=== PATIENT | male | born 1950 | race Caucasian/White ===

== ENCOUNTER 2021-04-22 09:47 | Outpatient (CLI) | payer MEDICARE, SELFPAY ==
--- NOTE | ~2021-04-22 | US_ITS ---
EXAMINATION: US aorta [facility] DATE: 04/22/2021 10:42 CDT INDICATION: Abdominal aortic aneurysm screening. High cholesterol. TECHNIQUE: Grayscale, color Doppler, and pulsed Doppler images of the aorta and common iliac arteries were obtained. COMPARISON: None. FINDINGS: There is mild atherosclerotic changes. The proximal aorta measures 2.1 cm sagittal dimension. The mid aorta measures 1.6 cm greatest sagittal dimension. The distal aorta measures 1.4 cm greatest sagitta l dimension. The right common internal iliac artery measures 1 cm. The left common iliac artery measu res 8 mm. IMPRESSION: 1. Mild atherosclerosis of the abdominal aorta without aneurysm. Reviewed, dictated and finalized at location B.
== END 2021-04-22 09:48 | disposition home or self-care (01) ==
PROVIDERS: PCP Family Medicine; Visit Provider Physician Assistant
DX: Z13.6 Encounter for screening for cardiovascular disorders (principal); I70.0 Atherosclerosis of aorta
CPT/HCPCS: 76706

== ENCOUNTER 2021-07-10 12:55 | Emergency (ER) | payer MEDICARE, SELFPAY ==
[2021-07-10 13:05] VITALS: BP 129/68; PULSE 81; RESP 18; TEMP 37; O2SAT 99
--- NOTE | 2021-07-10 13:40 | ED.MALEGU ---
HPI - Male Genitourinary General Chief complaint: Urogenital-Male Stated complaint: Male Genitalia Source: patient and RN notes reviewed Limitations: no limitations History of Present Illness HPI Narrative: The patient, is on several routine meds, presents with suprapubic pain. Patient states been followed by PMD, urology in the past for prostatism [MARCH BUN/creatinine = 25/1], and more recently his PMD for eosinophilia,mild thrombocytopenia[ [id number]]. He now complains of a shorter 1 day history of suprapubic discomfort urinary frequency, hesitancy and dribbling. No fever, low back pain, blood, vomiting/diarrhea; and prior abdominal ultrasound showed stable AAA [1.4 cm, 2.0 cm proximally]. He was able to urinate ;and midday, point of care urine test is noncontributory. Discussed causes [infectious, obstructive, other ] and advised to go to hospital or see urologist if not improved Related Data Home Medications Medication Instructions Recorded Confirmed Aspir-81 81 mg PO DAILY 07/10/21 07/10/21 Allergies Allergy/AdvReac Type Severity Reaction Status Date / Time Penicillins Allergy Unknown Skin Verified 07/10/21 13:41 Reaction Review of Systems Review of Systems: General/Constitutional: No weight loss,fever Eyes: N0: Redness,discharge Ears/Nose/Throat: No: Epistaxis,ear discharge Respiratory: Denies: Hemoptysis Gastrointestinal: No Vomiting, Bleeding-rectal Skin: No Lumps, eruption Neurologic: No Focal Weakness,Sz Hematologic: Denies: Petechiae/Purpura Psychiatric: No: Suicida ideationl All Other Systems: Reviewed and Negative [facility], [facility] Surgical History Surgical History Hx of cholecystectomy Family History Family History Father Family history of genitourinary disease Malignant neoplasm of prostate Mother Diabetes mellitus Sibling Family history of malignant neoplasm Social History Social History (Updated 03/25/21 @ 09:46 by Millie Pena CMA) Alcohol intake: never Gender identity (if verbalized by the patient): Male Comments At time of signature, agree with nursing past medical, surgical, social and family history. There is no relevant family history pertinent to the presenting complaint Exam Narrative: General Appearance: Well appearing, No distress EYE: PERRLA, Conjunctiva clear Ears: External ear normal Nose: Normal nose Mouth/Throat: Normal appearing, Normal lips Neck: Supple Respiratory: Airway patent, No respiratory distress Cardiovascular: RRR Abdomen: Soft, Non-tender, No massess, No organomegaly (no rebound/ surgical signs), Hyperactive bowel sounds Musculoskeletal: Full ROM Skin: Warm, Dry Neurological: A&O x3, CN II-X intact Psychiatric: Normal mood, Normal affect Course Vital Signs Vital signs: Vital Signs Temperature 98.6 F 07/10/21 13:05 Pulse Rate 81 07/10/21 13:05 Respiratory Rate 18 07/10/21 13:05 Blood Pressure 129/68 07/10/21 13:05 Pulse Oximetry 99 07/10/21 13:05 Temperature 98.6 F 07/10/21 13:05 Pulse Rate 81 07/10/21 13:05 Respiratory Rate 18 07/10/21 13:05 Blood Pressure 129/68 07/10/21 13:05 Pulse Oximetry 99 07/10/21 13:05 MDM - Male Genitourinary Lab Data Labs: Urine Glucose Negative Reference Range: Negative Urine Bilirubin Negative Reference Range: Negative Urine Ketone Negative Reference Range: Negative Urine Specific [place] 1.020 Reference Range:1.001-1.035 Urine Blood Trace Reference Range: Negative * *
== END 2021-07-10 14:02 | disposition home or self-care (01) ==
PROVIDERS: Emergency Provider Emergency Medicine; PCP Family Medicine
DX: R39.11 Hesitancy of micturition (principal); N40.0 Benign prostatic hyperplasia without lower urinary tract symptoms; E78.00 Pure hypercholesterolemia, unspecified; I10 Essential (primary) hypertension; M19.90 Unspecified osteoarthritis, unspecified site
CPT/HCPCS: 81003; 87086; 99213; G0463

== ENCOUNTER 2021-07-16 14:17 | Emergency (ER) | payer MEDICARE, SELFPAY ==
--- NOTE | 2021-07-16 14:37 | ED.SKABFB ---
HPI - Skin/Abscess/Foreign Bdy General Chief complaint: Skin/Abscess/Foreign Body Stated complaint: Rash Rt side of face History of Present Illness HPI narrative: This is a 70-year-old male that comes in complaining of pain to the top of his head that it radiates down is him a headache as well to his eye he has some small rash-like area states that he was here on the was treated for urinary tract infection does not know if he is having allergic reaction or not to the medication there is no other areas noted per patient not itchy is just has radiating pain and it hurts at times and it comes and goes nothing makes it better or worse Related Data Home Medications Medication Instructions Recorded Confirmed Aspir-81 81 mg PO DAILY 07/10/21 07/16/21 Allergies Allergy/AdvReac Type Severity Reaction Status Date / Time Penicillins Allergy Unknown Skin Verified 07/16/21 14:30 Reaction Review of Systems Review of Systems: CONSTITUTIONAL: Denies fever, chills, or sweats. EYES: Denies visual changes, redness, or discharge. ENT: Denies rhinorrhea, congestion, sore throat, or otalgia. CARDIOVASCULAR:Denies chest pain, palpitations, or edema. RESPIRATORY: Denies cough or dyspnea. GASTROINTESTINAL: Denies abdominal pain, nausea, vomiting, or diarrhea. GENITOURINARY: Denies dysuria or hematuria. SKIN: Reports rash or itching. MUSCULOSKELETAL:Denies back pain, joint pain, or myalgia. NEUROLOGIC: Denies headache, numbness, or weakness. PSYCHIATRIC:Denies anxiety or depression [facility] Surgical History Surgical History Hx of cholecystectomy Family History Family History Father Family history of genitourinary disease Malignant neoplasm of prostate Mother Diabetes mellitus Sibling Family history of malignant neoplasm Social History Social History (Updated 03/25/21 @ 09:46 by Millie Pena CMA) Alcohol intake: never Gender identity (if verbalized by the patient): Male Comments At time as signature, I have reviewed and agree with nursing past medical, social, surgical and family history. Please see nursing chart for further information. There is no relevant family history pertinent to the presenting complaint. Exam Narrative: GENERAL:Well-appearing, well-nourished, and in no acute distress. HEAD:Normocephalic, atraumatic. EYES: PERRLA and EOMI. ENT: Nares clear, no rhinorrhea or epistaxis. Mucous membranes moist. NECK: Supple. CHEST: Clear to auscultation. No respiratory distress. HEART: Regular rate and rhythm. . Normal peripheral pulses. ABDOMEN: Soft, nontender, nondistended, normal active bowel sounds. EXTREMITIES: Normal range of motion. No edema. SKIN: Warm, dry, no rash. Right side of head 5-6 erythema around fluid-filled vesicles patient complains of pain that shoots down to the right side of his face as well to his no other areas on the body NEURO: No focal deficits. Alert and oriented x3. 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 They may also decrease your risk of developing nerve pain. You will need to start taking them within 3 days of the start of symptoms to prevent nerve pain. Prescription pain medicine
== END 2021-07-16 14:59 | disposition home or self-care (01) ==
PROVIDERS: Emergency Provider Nurse Practitioner Family; PCP Family Medicine
DX: B02.29 Other postherpetic nervous system involvement (principal); Z79.01 Long term (current) use of anticoagulants
CPT/HCPCS: 99213; G0463

== ENCOUNTER 2021-10-06 10:04 | Emergency (ER) | payer MEDICARE, SELFPAY ==
[2021-10-06 10:09] VITALS: BP 128/66; PULSE 93; RESP 20; TEMP 36.5; O2SAT 97
--- NOTE | 2021-10-06 10:14 | ED.URI ---
HPI - URI/Sore Throat General Chief Complaint: Upper Respiratory Infection Stated Complaint: Sinus,Cough Source: patient and RN notes reviewed Mode of arrival: ambulatory History of Present Illness HPI Narrative: This is a 70-year-old male who presented to urgent care with complaints of head and chest congestion that he has been experiencing for approximately 1 week according to patient on Monday he received his booster vaccine and did note that he was sick previously to getting his booster. He did talk to medical personnel who informed him that it would be okay for him to get his booster even with his symptoms. Patient does have a history of allergies he does not report any fever and notes that he has uncontrollable nonproductive coughing at night which keeps him up at night. At home he did use [id number] medication with decongestion with no relief he also complains of shortness of breath with wheezing. The patient denies, CP, palpitation, extremity numbness, lightheadedness, sinus tenderness ,dizziness, constipation, diarrhea, chills, or fever. MD elicited complaint: cough and nasal congestion Related Data Home Medications Medication Instructions Recorded Confirmed Aspir-81 81 mg PO DAILY 07/10/21 10/06/21 chlordiazepoxide HCl 5 mg PO DAILY 10/06/21 10/06/21 ciprofloxacin HCl 250 mg PO BID 10/06/21 10/06/21 valacyclovir 1,000 mg PO DAILY 10/06/21 10/06/21 Allergies Allergy/AdvReac Type Severity Reaction Status Date / Time Penicillins Allergy Unknown Skin Verified 10/06/21 10:25 Reaction Review of Systems Review of Systems: A 14 organ system Review of Systems was performed and pertinent positives included in the HPI, otherwise remaining ROS is negative. [facility] Surgical History Surgical History Hx of cholecystectomy Family History Family History Father Family history of genitourinary disease Malignant neoplasm of prostate Mother Diabetes mellitus Sibling Family history of malignant neoplasm Social History Social History Alcohol intake: never Gender identity (if verbalized by the patient): Male Exam Narrative: GENERAL: This is a well-nourished, well-developed patient, in no apparent distress. HEAD: normocephalic, atraumatic. EYES: PERRL. Sclera clear/white. Vision is grossly intact. EARS: External ears normal, auditory canals clear and without drainage, TMs normal without perforation. Hearing grossly intact. NOSE: External nose normal with no obvious nasal discharge, nares without redness, no rhinorrhea. THROAT: Mucous membranes moist, posterior pharynx clear. NECK: Neck supple, non-tender without lymphadenopathy, masses or thyromegaly. CARDIOVASCULAR: Regular rate and rhythm without murmurs, gallops, or rubs. RESPIRATORY: Clear to auscultation. Breath sounds equal bilaterally. No wheezes, rales, or rhonchi. GASTROINTESTINAL: Abdomen soft, non-tender, nondistended. Bowel sounds are active. No hepato-splenomegaly, or palpable masses. No guarding. SKIN: warm, intact with no suspicious lesions or rash, good texture and turgor. NEURO: awake, alert, and oriented to person, place and time. There were no obvious focal neurologic abnormalities. Steady gait EXTREMITIES: Normal range of motion. No edema. No calf tenderness. Negative Homans sign bilaterally. BACK: Nontender without deformity or crepitance. No flank tenderness. Course Course Emergency Course: Patient will be treated for upper respiratory inspection he will go home with decongestant with codeine, Flonase, albuterol, Claritin and Tessalon Perles. Vital Signs Vital signs: Vital Signs Temperature 97.7 F 10/06/21 10:09 Pulse Rate 93 10/06/21 10:09 Respiratory Rate 20 10/06/21 10:09 Blood Pressure 128/66 10/06/21 10:09 Pulse Oximetry 97 10/06/21 10:09
== END 2021-10-06 10:48 | disposition home or self-care (01) ==
PROVIDERS: Emergency Provider Nurse Practitioner; PCP Family Medicine
DX: J06.9 Acute upper respiratory infection, unspecified (principal)
CPT/HCPCS: 99213; G0463

== ENCOUNTER 2021-11-15 02:25 | Emergency (ER) | payer MEDICARE, SELFPAY ==
--- NOTE | ~2021-11-15 | CT_ITS ---
EXAMINATION: CT abdomen pelvis wo con DATE: 11/15/2021 08:20 INDICATION: Left flank pain radiating to the groin TECHNIQUE: Computed tomography (CT) of the abdomen and pelvis was performed without intravenous contr ast. Automated exposure control and iterative reconstruction technique were employed. The dose-length product was 214.57 mGy-cm. COMPARISON: 06/13/2016 FINDINGS: Minimal dependent atelectasis in the right lower lobe. Heart size is normal. Atherosclerotic coronary artery calcification. No pericardial or pleural effusion. Cholecystectomy clips at the gallbladder f carol. Liver, spleen, pancreas and bilateral adrenal glands are normal. Bilateral low-attenuation petr l cysts the larger on the right measuring 1.8 cm. Bilateral nephrolithiasis with 8 stones measuring u p to 5 mm on the right and 7 stones measuring up to 5-6 mm on the left. At least partially obstructin g 5 x 3 mm stone in the mid right ureter with more proximal mild left hydroureteronephrosis and asymm etric left perinephric stranding. Bowels are unremarkable. The appendix is again not visualized with no pericecal inflammatory stranding to suggest acute appendicitis. Bladder is normal. No free intrape ritoneal gas or fluid. No pathologically enlarged abdominal or pelvic lymphadenopathy. Mild thoracolu mbar S-shaped curvature with severe lumbar spondylosis. IMPRESSION: 1. Bilateral nephrolithiasis with obstructing 5 x 3 mm mid right ureteral stone with mild left hydrou reteronephrosis. Reviewed, dictated and finalized at location B. ER OPERATOR IMPRESSION: 1. Bilateral nephrolithiasis with obstructing 5 x 3 mm mid right ureteral stone with mild left hydroureteronephrosis.
[2021-11-15 02:28] VITALS: BP 186/95; PULSE 71; RESP 17; TEMP 35.8; O2SAT 100
[2021-11-15 04:59] VITALS: BP 144/83; PULSE 74; RESP 18; TEMP 36.7; O2SAT 98
[2021-11-15 07:05] VITALS: BP 147/76; PULSE 79; RESP 18; TEMP 36.6; O2SAT 99
--- NOTE | 2021-11-15 07:45 | ED.MALEGU ---
HPI - Male Genitourinary General Chief complaint: Urogenital-Male Stated complaint: Left flank pain Time Seen by Provider: 11/15/21 07:45 Source: patient Mode of arrival: ambulatory Limitations: no limitations History of Present Illness HPI Narrative: The patient is a 71 yo male with a history of BPH, migraine headaches, HTN, presenting for evaluation of left flank pain. This pain awakened him from sleeping. Pain is sharp, aching in nature. Pt with history of kidney stones on right side approximately 10 years ago. Pt was able to pass the stone on his own. Patient rates pain as 5-6/10. No radiation to the frontal abdomen. Pt denies dysuria or hematuria. No hesitancy or frequency. Patient denies fever, chills, nausea or vomiting. No chest pain. No upper abdominal pain. Patient had prostatitis approximately 1 month ago. Denies taking ciprofloxacin currently. Related Data Home Medications Medication Instructions Recorded Confirmed Aspir-81 81 mg PO DAILY 07/10/21 10/06/21 chlordiazepoxide HCl 5 mg PO DAILY 10/06/21 10/06/21 ciprofloxacin HCl 250 mg PO BID 10/06/21 10/06/21 valacyclovir 1,000 mg PO DAILY 10/06/21 10/06/21 Allergies Allergy/AdvReac Type Severity Reaction Status Date / Time Penicillins Allergy Unknown Skin Verified 10/06/21 10:25 Reaction Review of Systems Review of Systems: CONSTITUTIONAL: Denies fever, chills, or sweats. CARDIOVASCULAR: Denies chest pain, palpitations, or edema. RESPIRATORY: Denies cough or dyspnea. GASTROINTESTINAL: Denies abdominal pain, nausea, vomiting, or diarrhea. GENITOURINARY: Denies dysuria or hematuria. Reports left flank pain. SKIN: Denies rash or itching. MUSCULOSKELETAL: Denies back pain, joint pain, or myalgia. NEUROLOGIC: Denies headache, numbness, or weakness. [facility] Past Medical History Medical History (Updated 11/15/21 @ 10:46 by Gilda Cagle MD) Actinic keratosis Benign prostatic hyperplasia Cerumen impaction Constipation Cough Dyslipidemia (Unknown) Elevated liver enzymes Elevated platelet count Elevated PSA Essential (primary) hypertension Impacted cerumen of right ear Impaired fasting glucose Impaired fasting glucose Low vitamin D level Migraine NOS/intractable Mixed hyperlipidemia Need for hepatitis C screening test Prostatitis Screening for abdominal aortic aneurysm Serum calcium elevated Surgical History Surgical History Hx of cholecystectomy Family History Family History Father Family history of genitourinary disease Malignant neoplasm of prostate Mother Diabetes mellitus Sibling Family history of malignant neoplasm Social History Social History Alcohol intake: never Gender identity (if verbalized by the patient): Male Exam Narrative: GENERAL: Awake, alert, conversant HEAD: Normocephalic, atraumatic. EYES: PERRLA and EOMI. ENT: Nares clear, no rhinorrhea or epistaxis. Mucous membranes moist. NECK: Supple. CHEST: No respiratory distress, breathing even and non labored HEART: Regular rate, sinus rhythm ABDOMEN:Non distended, non tender EXTREMITIES: Normal range of motion. No edema. SKIN: Warm, dry, no rash. NEURO:No focal deficits. Alert and oriented x3. Pt is ambulatory. Course Vital Signs Vital signs: Vital Signs Temperature 35.8 C L 11/15/21 02:28 Pulse Rate 71 11/15/21 02:28 Respiratory Rate 17 11/15/21 02:28 Blood Pressure 186/95 H 11/15/21 02:28 Pulse Oximetry 100 11/15/21 02:28 Temperature 36.6 C 11/15/21 07:05 Pulse Rate 79 11/15/21 07:05 Respiratory Rate 18 11/15/21 07:05 Blood Pressure 147/76 H 11/15/21 07:05 Pulse Oximetry 99 11/15/21 07:05 MDM - Male Genitourinary MDM Narrative Medical decision making narrative: Patient presented for evaluation of left flank pain. At the time of assessm
--- NOTE | 2021-11-15 07:57 | PC.NURSE ---
Pt seen in triage bay by ERP.
[2021-11-15] MEDS: oxyCODONE/ACETAMINOPHEN (*CRX) 5-325 MG TABLET 1 TABLET PO (08:28)
[2021-11-15 09:00] LABS: Basophils Absolute Auto 0.1 K/mm3 (0.0-0.1); Basophils Percent Auto 0.7 % (0.2-1.2); Eosinophils Absolute Auto 0.3 K/mm3 (0-0.3); Eosinophils Percent Auto 2.8 % (0-4.4); Hematocrit 43.6 % (42.0-52.0); Hemoglobin 15.1 g/dL (14.0-18.0); Immature Granulocyte Absolute 0.04 K/mm3 (0.00-0.031); Immature Granulocyte Percent A 0.3 % (0-0.5); Lymphocytes Absolute Auto 2.13 K/mm3 (0.9-3.2); Lymphocytes Percent Auto 17.6 % (18.3-44.2); Mean Corpuscular HGB Conc 34.6 g/dl (32-36); Mean Corpuscular Hemoglobin 32.8 pg (26-34); Mean Corpuscular Volume 94.6 fl (80-100); Mean Platelet Volume 9.8 fl (7.4-10.4); Monocytes Percent Auto 8.5 % (2.6-8.5); Neutrophils Absolute Auto 8.5 K/mm3 (1.3-6.7); Neutrophils Percent Auto 70.1 % (45.5-73.1); Platelet Count Result 358 k/mm3 (150-375); Red Blood Count 4.61 M/mm3 (4.6-6.20); Red Cell Distribution Width 13.2 % (11.5-14.5); White Blood Count 12.1 K/mm3 (4.5-10.0)
[2021-11-15 09:15] LABS: Add Urine Microscopic? YES; Appearance Urine Clear (Clear); Bilirubin Urine Negative (Negative); Blood Urine 2+ (Negative); Color Urine Yellow (Yellow); Glucose Urine UA Negative (Negative); Ketones Urine Negative (Negative); Leukocyte Esterase Ur Negative LEU/UL (Negative); Mucus Urine Rare /lpf; Nitrate Urine Negative (Negative); Protein Urine Negative (Negative); RBC Urine 51-75 /hpf (0-2); Specific Grav Ur 1.013 (1.001-1.035); Squamous Epithelial Cell Urine Rare /hpf (Few); Urobilinogen Urine Negative mg/dL (<2.0)
[2021-11-15 10:34] LABS: Anion Gap 7 mmol/L (8-16); Blood Urea Nitrogen 22 mg/dL (9-20); Calcium 10.2 mg/dL (8.4-10.2); Carbon Dioxide 30 mmol/L (22-30); Chloride 103 mmol/L (98-107); Estimated Glomerular Filt Rate 60; Glucose 106 mg/dL (65-110); Potassium 4.4 mmol/L (3.4-5.0); Sodium 140 mmol/L (137-145)
== END 2021-11-15 11:04 | disposition home or self-care (01) ==
PROVIDERS: Emergency Provider Emergency Medicine; PCP Family Medicine
DX: N13.2 Hydronephrosis with renal and ureteral calculous obstruction (principal); I10 Essential (primary) hypertension; N40.0 Benign prostatic hyperplasia without lower urinary tract symptoms; E78.2 Mixed hyperlipidemia
CPT/HCPCS: 36415; 74176; 80048; 81001; 85025; 99284; A9270

== ENCOUNTER → 2021-12-02 08:11 | Outpatient (CLI) | payer MEDICARE, SELFPAY ==
--- NOTE | ~2021-12-02 | CT_ITS ---
EXAMINATION: CT abdomen pelvis wo con EXAM DATE: 12/02/2021 08:36 INDICATION: Left ureteral stone. TECHNIQUE: Spiral CT of the abdomen and pelvis was performed without contrast. Axial, coronal and sag ittal images were reviewed. The dose-length product (DLP) for this examination was 521.48 mGy-cm. T he exposure was tailored according to patient size (auto mA exposure control), and iterative reconstr uction (ASIR) was used as additional dose reduction technique. Comparison is made to prior examinatio n from 11/15/2021. FINDINGS: Previously seen left mid ureteral stone has passed, no ureter or bladder stones, no obstruc tive nephropathy. Multiple bilateral kidney stones up to 10 mm on the right and 6 mm on the left. The re is 1.5 cm right renal cyst. The prostate is unremarkable. The bladder is unremarkable. The liver , spleen, adrenal glands and pancreas are unremarkable. Gallbladder not identified, patient likely h as had cholecystectomy. There is no retroperitoneal or pelvic lymphadenopathy. There is mild scatt ered arteriosclerotic disease. There are no findings to suggest appendicitis. The stomach and small bowel are unremarkable. There is expected amount of colonic stool. No free intraperitoneal gas. The heart is normal in size. T here are no pericardial or pleural effusions. 3 mm lingular noncalcified granuloma. Moderate to sev ere disc disease L4-5 and L5-S1. There are no osteoblastic or osteolytic lesions identified. IMPRESSION: Bilateral nonobstructing calyceal stones. Previously seen left ureteral stone has passed. Reviewed, dictated and finalized at location B. GER TRANSPORT IMPRESSION: Bilateral nonobstructing calyceal stones. Previously seen left uret eral stone has passed.
--- NOTE | ~2021-12-02 | XR_ITS ---
EXAMINATION: XR abdomen/kub 1V EXAM DATE: 12/02/2021 08:36 INDICATION: Left ureteral stone . TECHNIQUE: Frontal projection of the upper abdomen, frontal projection lower abdomen/pelvis for inter pretation. There is no prior study for comparison. FINDINGS: Bilateral nephrolithiasis identified. Mild lumbar scoliosis. Moderate to severe lower lumb ar disc disease. Cholecystectomy clips. Nonobstructive bowel gas pattern. IMPRESSION: Bilateral nephrolithiasis. Reviewed, dictated and finalized at location B. ER MEASURER IMPRESSION: Bilateral nephrolithiasis.
== END ==
PROVIDERS: PCP Family Medicine; Visit Provider Urology
DX: N20.2 Calculus of kidney with calculus of ureter (principal)
CPT/HCPCS: 74018; 74176

== ENCOUNTER 2022-07-16 11:34 | Emergency (ER) | payer MEDICARE, SELFPAY ==
--- NOTE | ~2022-07-16 | XR_ITS ---
EXAMINATION: XR foot LT min 3V DATE: 07/16/2022 12:05 INDICATION: Swelling and tenderness at the dorsum of the left foot TECHNIQUE: Dorsoplantar, two oblique and lateral views of the left foot were obtained. COMPARISON: None. FINDINGS: Alignment is normal. No fracture. Mild osteoarthritis at the calcaneocuboid, first metatarsophalangea l and a few tarsometatarsal and interphalangeal joints. Moderate-sized plantar calcaneal spur. Small heterotopic ossicle near the tip the lateral malleolus likely sequela of chronic lateral ankle sprain . Soft tissues are unremarkable. No left ankle joint effusion. IMPRESSION: 1. 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 No acute osseous abnormality. Reviewed, dictated and finalized at location A. IMPRESSION: 1. 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 No acute osseous abnorma lity.
[2022-07-16 12:00] VITALS: BP 134/72; PULSE 86; RESP 18; TEMP 36.7; O2SAT 95
--- NOTE | 2022-07-16 12:48 | ED.GENADULT ---
HPI - General Adult General Chief complaint: Extremity Injury, Lower Stated complaint: swollen lt foot History of Present Illness HPI narrative: Patient is a 71-year-old male who presents to the [facility] care via POV for evaluation of foot pain and swelling that he noticed this am. He reports pain is located on top of right foot. Pain is achy in nature and worses with weight bearing. Is taking meloxicam for arthritis although has not noticed if this helps with his symptoms. Related Data Home Medications Medication Instructions Recorded Confirmed amitriptyline 10 mg tablet 10 mg DAILY 07/16/22 07/16/22 aspirin 81 mg chewable tablet 81 mg PO DAILY 07/16/22 07/16/22 atorvastatin 10 mg tablet 10 mg DAILY 07/16/22 07/16/22 chlordiazepoxide HCl 5 mg capsule 5 mg DAILY 07/16/22 07/16/22 fenofibrate 160 mg tablet 160 mg DAILY 07/16/22 07/16/22 finasteride 5 mg tablet 5 mg DAILY 07/16/22 07/16/22 lisinopril 10 mg tablet 10 mg DAILY 07/16/22 07/16/22 meloxicam 15 mg tablet 15 mg DAILY 07/16/22 07/16/22 nifedipine 30 mg tablet,extended 30 mg PO DAILY 07/16/22 07/16/22 release tamsulosin 0.4 mg capsule 0.4 mg PO DAILY 07/16/22 07/16/22 Allergies Allergy/AdvReac Type Severity Reaction Status Date / Time Penicillins Allergy Unknown Skin Verified 07/16/22 12:20 Reaction Review of Systems Review of Systems: Pertinent negatives: fever, chills, sweats, change in appetite, poor p.o. intake, malaise, calf tenderness, skin color changes, rash, warmth, numbness, tingling, loss of sensation, deformity, decreased range of motion, weakness, difficulty with ambulation/coordination, nausea, vomiting, lymphadenopathy, shortness of breath, chest pain, heart palpitations, and heart murmur. [facility] Past Medical History Medical History Actinic keratosis Benign prostatic hyperplasia Cerumen impaction Constipation Cough Dyslipidemia (Unknown) Elevated liver enzymes Elevated platelet count Elevated PSA Essential (primary) hypertension Impacted cerumen of right ear Impaired fasting glucose Impaired fasting glucose Low vitamin D level Migraine NOS/intractable Mixed hyperlipidemia Need for hepatitis C screening test Prostatitis Screening for abdominal aortic aneurysm Serum calcium elevated Surgical History Surgical History Hx of cholecystectomy Family History Family History Father Family history of genitourinary disease Malignant neoplasm of prostate Mother Diabetes mellitus Sibling Family history of malignant neoplasm Social History Social History (Updated 04/14/22 @ 15:40 by ALYX Arreola) Smoking status: Former smoker Alcohol intake: never Gender identity (if verbalized by the patient): Male Exam Narrative: GENERAL: Well-appearing, well-nourished, and in no acute distress. HEAD: Normocephalic, atraumatic. NECK: Supple. No Lymphadenopathy or nuchal rigidity appreciated. CHEST: Bilateral lung aldana are clear to auscultation. No respiratory distress. No evidence of cough or pleuritic cp upon examination. HEART: Regular rate and rhythm. No murmur, gallop, or rub heard. EXTREMITIES: Subtle generalized swelling noted to dorsal aspect of left foot. Mild pain palpated over dorsal aspect of left foot. No evidence of injury, decreased ROM, cyanosis, hematoma, laceration, abrasion, deformity, rash, or puncture. No evidence of pain with active/passive ROM. No evidence of dislocation, ligament laxity, effusion, or pain at rest. Pulses palpable at 2+, strength 5/5, and cap refill < 3 seconds in affected extremity. DTRs normal. Gait normal. Negative oleksandr's test. SKIN: Warm, dry, no rash. NEURO: No focal deficits. Alert and oriented x3. SPECIAL OBSERVATIONS: Smiling. Laughing. No evidence of discomfort. Course Course Level of Care: Express Care
== END 2022-07-16 13:10 | disposition home or self-care (01) ==
PROVIDERS: Emergency Provider Nurse Practitioner Family; PCP Physician Assistant
DX: M19.072 Primary osteoarthritis, left ankle and foot (principal); Z87.891 Personal history of nicotine dependence; N40.0 Benign prostatic hyperplasia without lower urinary tract symptoms; I10 Essential (primary) hypertension; R73.01 Impaired fasting glucose; E78.2 Mixed hyperlipidemia
CPT/HCPCS: 73630; 99213; G0463

== ENCOUNTER → 2022-08-25 11:48 | Outpatient (CLI) | payer MEDICARE, SELFPAY ==
--- NOTE | ~2022-08-25 | XR_ITS ---
EXAMINATION: XR lumbar spine 2-3V DATE: 08/25/2022 12:03 INDICATION: Low back pain TECHNIQUE: Anteroposterior and lateral views of the lumbar spine, and cone-down lateral view of the l umbosacral junction were obtained. COMPARISON: 12/05/2016 FINDINGS: There are 3 mm of stable retrolisthesis of L5 on S1. There is no fracture. The vertebral anastasia dy heights are normal. There is severe loss of intervertebral disc space height at L2-3 with interval worsening. There is stable severe loss of intervertebral disc space height at L4-5 and L5-S1. There is moderate loss of intervertebral disc space height at L3-4. There is severe facet joint osteoarthri tis of the lower lumbar spine. Small degenerative osteophytes project from the anterior endplates of multiple vertebral bodies. Surgical clips in the right upper quadrant are likely from prior cholecyst ectomy. IMPRESSION: 1. Moderate to severe lumbar spondylosis with interval worsening. No acute findings. Reviewed, dictated and finalized at location F. IMPRESSION: 1. Moderate to severe lumbar spondylosis with interval worsening. No acute find ings.
== END ==
PROVIDERS: PCP Family Medicine; Visit Provider Physician Assistant
DX: M47.896 Other spondylosis, lumbar region (principal)
CPT/HCPCS: 72100

== ENCOUNTER → 2022-09-29 14:36 | Outpatient (CLI) | payer MEDICARE, SELFPAY ==
--- NOTE | ~2022-09-29 | MR_ITS ---
EXAMINATION: MR lumbar spine wo con DATE: 09/29/2022 15:15 INDICATION: Lumbar radiculopathy. Low back pain. TECHNIQUE: Magnetic resonance imaging (MRI) of the lumbar spine was performed without intravenous con trast. Sequences included sagittal T2-weighted FSE, sagittal T2-weighted FS FSE, sagittal T1-weighted FSE, and axial T2-weighted FSE. COMPARISON: Lumbar spine radiographs 08/25/2022 FINDINGS: There is 12 degrees dextroscoliosis of lumbar spine. Vertebral body heights are normal. The re is moderately decreased disc height at L1-L2, severely decreased disc height at L2-L3, moderately decreased disc height at L3-L4, and severely decreased disc height at L4-L5 and L5-S1 with endplate r emodeling. There is ligamentum flavum hypertrophy at the disc levels in lumbar spine. The distal spin al cord signal intensity is normal. The conus medullaris is at L1. The following disc levels are spec ifically discussed: L1-L2: The disc is bulging. There is severe bilateral facet joint osteoarthritis. There is mild right and moderate left neural foraminal stenosis. There is moderate central canal stenosis. L2-L3: The disc is bulging and has an annular fissure. There is severe right and moderate left facet joint osteoarthritis. There is moderate bilateral neural foraminal stenosis. There is moderate centra l canal stenosis. L3-L4: The disc is bulging and has an annular fissure. There is severe bilateral facet joint osteoart hritis. There is moderate bilateral neural foraminal stenosis. There is moderate central canal stenos is. L4-L5: The disc is bulging and has an annular fissure. There is severe right and moderate left facet joint osteoarthritis. There is moderate bilateral neural foraminal stenosis. There is mild central ca nal stenosis. L5-S1: The disc is bulging and has an annular fissure. There is moderate bilateral facet joint osteoa rthritis. There is moderate bilateral neural foraminal stenosis. There is mild central canal stenosis . IMPRESSION: 1. Severe lumbar spondylosis. 2. Lumbar dextroscoliosis. Reviewed, dictated and finalized at location A. 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
== END ==
PROVIDERS: PCP Family Medicine; Visit Provider Physician Assistant
DX: M47.26 Other spondylosis with radiculopathy, lumbar region (principal)
CPT/HCPCS: 72148

== ENCOUNTER 2022-11-01 10:06 | Emergency (ER) | payer MEDICARE, SELFPAY ==
--- NOTE | ~2022-11-01 | XR_ITS ---
Clinical Indication: Cough PA and lateral views of the chest: Comparison: 12/31/2013 Findings: The lungs are clear, without evidence of focal consolidation or pleural effusion. Cardiome diastinal silhouette is within normal limits. Bones and soft tissues are unremarkable. Impression: Normal chest. Reviewed, dictated and finalized at [facility]. 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
[2022-11-01 10:26] VITALS: BP 100/60; PULSE 97; RESP 18; TEMP 36.3; O2SAT 98
--- NOTE | 2022-11-01 10:29 | ED.URI ---
HPI - URI/Sore Throat General Chief Complaint: Upper Respiratory Infection Stated Complaint: congestion,cough,wheezing Time Seen by Provider: 11/01/22 10:29 Source: patient and RN notes reviewed Mode of arrival: ambulatory Limitations: no limitations History of Present Illness HPI Narrative: 72-year-old male presented for complaint of cough, wheezing, and short of breath with exertion over the last 3 days. He endorses wheezing is worse at night. He denies hemoptysis, the fever, chills, vomiting or diarrhea. He endorses his also has a cough. MD elicited complaint: cough Related Data Home Medications Medication Instructions Recorded Confirmed aspirin 81 mg chewable tablet 81 mg PO DAILY 07/16/22 11/01/22 chlordiazepoxide HCl 5 mg capsule 5 mg DAILY 07/16/22 11/01/22 lisinopril 10 mg tablet 10 mg DAILY 07/16/22 11/01/22 tamsulosin 0.4 mg capsule 0.4 mg PO DAILY 07/16/22 11/01/22 meloxicam 15 mg tablet 15 mg PO DAILY 10/28/22 11/01/22 Allergies Allergy/AdvReac Type Severity Reaction Status Date / Time Penicillins AdvReac Mild Skin Verified 11/01/22 10:20 Reaction Review of Systems Review of Systems: CONSTITUTIONAL: Denies malaise, chills, sweats, fever EYES: Denies visual changes, redness, or discharge ENT: Reports rhinorrhea, congestion, denies otalgia, sore throat CARDIOVASCULAR: Denies chest pain, palpitations, edema RESPIRATORY: Reports cough, wheezing, dyspnea GASTROINTESTINAL: Denies abdominal pain, nausea, vomiting, diarrhea SKIN: Denies rash or itching MUSCULOSKELETAL: denies myalgia PMFSH Past Medical History Medical History Actinic keratosis Benign prostatic hyperplasia Cerumen impaction Constipation Cough Dyslipidemia (Unknown) Elevated liver enzymes Elevated platelet count Elevated PSA Essential (primary) hypertension Impacted cerumen of right ear Impaired fasting glucose Impaired fasting glucose Low vitamin D level Migraine NOS/intractable Mixed hyperlipidemia Need for hepatitis C screening test Prostatitis Screening for abdominal aortic aneurysm Serum calcium elevated Surgical History Surgical History Hx of cholecystectomy Family History Family History Father Family history of genitourinary disease Malignant neoplasm of prostate Mother Diabetes mellitus Sibling Family history of malignant neoplasm Social History Social History Social History: Caffeine-coffee daily Smoking status: Former smoker Alcohol intake: current Alcohol use details: rarely Lack of Transportation: No Lack of Food: Never True Current Housing: I Have Housing Concerned About Future Housing: No Difficulty Paying Gas/Electric Bills: No Difficulty Paying for Meds: No Currently Unemployed: No Education: High School Diploma/GED Difficulty w/ Childcare or Family Care: No Gender identity (if verbalized by the patient): Male Exam Narrative: GENERAL: Ill-appearing, nontoxic EYES: PERRLA, conjunctivae clear ENT: Mucous membranes moist. hearing aides bilaterally; no tragal tenderness. Oropharynx without lesions or exudate, no drooling, no hoarseness, no trismus, uvula midline. CHEST: Clear to auscultation, diminished RLL; No wheezing, rhonchi, rales, or stridor. No respiratory distress, speaks in full sentences. HEART: Regular rate and rhythm. No murmur heard. SKIN: Warm, dry, no rash. NEURO: Alert and oriented x3. PSYCH: Normal mood and affect Course Course Emergency Course: Patient is aware of diagnosis, understands and agrees to treatment plan. Anticipatory guidance given. Patient agrees to follow-up as directed and is aware of reasons to seek care at the emergency department. Portions of this record may have been created with voice r
== END 2022-11-01 11:00 | disposition home or self-care (01) ==
PROVIDERS: Emergency Provider Nurse Practitioner Family; PCP Physician Assistant
DX: B34.9 Viral infection, unspecified (principal); E78.2 Mixed hyperlipidemia; I10 Essential (primary) hypertension; Z87.891 Personal history of nicotine dependence; Z79.82 Long term (current) use of aspirin; Z79.1 Long term (current) use of non-steroidal anti-inflammatories (NSAID)
CPT/HCPCS: 71046; 99213; G0463

== ENCOUNTER 2022-11-03 08:55 | Outpatient (CLI) | payer MEDICARE, SELFPAY ==
--- NOTE | ~2022-11-03 | US_ITS ---
EXAMINATION: US venous doppler [facility] DATE: 11/03/2022 09:30 INDICATION: Left lower limb pain and swelling. TECHNIQUE: Grayscale ultrasound images without and with compression and Doppler ultrasound images of the left lower extremity veins were obtained. COMPARISON: Ultrasound 12/02/2016 FINDINGS: The visualized portions of left common femoral vein, profunda (deep) femoral vein, femoral vein, popl iteal vein, peroneal veins, posterior tibial veins, and greater saphenous vein outflow are patent. IMPRESSION: 1. No deep venous thrombosis. Reviewed, dictated and finalized at location A. 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
== END 2022-11-03 08:56 | disposition home or self-care (01) ==
PROVIDERS: PCP Physician Assistant; Visit Provider Physician Assistant
DX: E78.2 Mixed hyperlipidemia (principal); M25.50 Pain in unspecified joint; G43.919 Migraine, unspecified, intractable, without status migrainosus; R73.01 Impaired fasting glucose; R74.8 Abnormal levels of other serum enzymes; R79.89 Other specified abnormal findings of blood chemistry; R97.20 Elevated prostate specific antigen [PSA]; Z12.5 Encounter for screening for malignant neoplasm of prostate
CPT/HCPCS: 93971

== ENCOUNTER → 2022-11-03 09:33 | Outpatient (CLI) | payer MEDICARE, SELFPAY ==
--- NOTE | ~2022-11-03 | XR_ITS ---
Left Knee Technique: AP, lateral, and sunrise views were obtained. Clinical History: Pain Findings: No fracture or dislocation is seen. Osseous alignment is anatomic. Minimal degenerative spu rring noted is patella and intercondylar notch. Soft tissues are unremarkable. No joint effusion is s een. Impression: Minimal degenerative change, as above. Reviewed, dictated and finalized at location M. [employer] Impression: Minimal degenerative change, as above.
== END ==
PROVIDERS: PCP Physician Assistant; Visit Provider Physician Assistant
DX: M25.50 Pain in unspecified joint (principal); E78.2 Mixed hyperlipidemia; G43.919 Migraine, unspecified, intractable, without status migrainosus; R73.01 Impaired fasting glucose; R74.8 Abnormal levels of other serum enzymes; R79.89 Other specified abnormal findings of blood chemistry; R97.20 Elevated prostate specific antigen [PSA]; Z12.5 Encounter for screening for malignant neoplasm of prostate
CPT/HCPCS: 73562

== ENCOUNTER → 2023-03-15 13:08 | Outpatient (CLI) | payer MEDICARE, SELFPAY ==
--- NOTE | ~2023-03-15 | MR_ITS ---
EXAMINATION: MR cervical spine wo con DATE: 03/15/2023 13:59 INDICATION: Neck pain. Left shoulder pain. TECHNIQUE: Magnetic resonance imaging (MRI) of the cervical spine was performed without intravenous c ontrast. Sequences included sagittal T2-weighted FSE, sagittal T2-weighted FS FSE, sagittal T1-weight ed FSE, axial MERGE, and axial T2-weighted FSE. COMPARISON: Cervical spine MRI 04/10/2010 FINDINGS: There is 8 degrees dextrocurvature of cervical spine. There is 2 mm anterolisthesis of C3 o n C4 and C4 on C5. There is focal kyphosis at C6-C7 with interbody fusion. There is mildly decreased disc height at C3-C4 and C4-C5 and severely decreased disc height at C5-C6. The spinal cord signal in tensity is normal. The following disc levels are specifically discussed: C2-C3: There is a central extrusion. There is mild right and moderate left uncovertebral joint osteoa rthritis. There is severe bilateral facet joint osteoarthritis. There is mild right and moderate left neural foraminal stenosis. There is no central canal stenosis. C3-C4: The disc does not extend beyond the endplate margins. There is mild right and moderate left un covertebral joint osteoarthritis. There is ankylosis of the facet joints with moderate bilateral hype rtrophy. There is mild bilateral neural foraminal stenosis. There is no central canal stenosis. C4-C5: The disc is bulging. There is mild right and moderate left uncovertebral joint osteoarthritis. There is moderate right and severe left facet joint osteoarthritis. There is mild right and moderate left neural foraminal stenosis. There is moderate central canal stenosis with ventral and dorsal ind entation of spinal cord. C5-C6: The disc is bulging. There is severe bilateral uncovertebral joint osteoarthritis. There is mi ld bilateral facet joint osteoarthritis. There is moderate bilateral neural foraminal stenosis. There is moderate central canal stenosis with ventral and dorsal indentation of spinal cord. C6-C7: There is mild left uncovertebral joint hypertrophy. There is mild bilateral facet joint hypert rophy. There is mild left neural foraminal stenosis. There is mild central canal stenosis. C7-T1: There is a central protrusion. There is no uncovertebral joint osteoarthritis. There is severe right and mild left facet joint osteoarthritis. There is mild bilateral neural foraminal stenosis. T here is mild central canal stenosis. IMPRESSION: 1. Severe cervical spondylosis. 2. Posterior fusion at C3-C4 and anterior fusion at C5-C6. Reviewed, dictated and finalized at location A.
--- NOTE | ~2023-03-15 | MR_ITS ---
EXAMINATION: MR shoulder LT wo con DATE: 03/15/2023 14:08 INDICATION: Left shoulder pain TECHNIQUE: Magnetic resonance imaging (MRI) of the left shoulder was performed without intravenous co ntrast. Sequences included axial PD-weighted FS FSE, coronal oblique PD-weighted FS FSE, coronal obli que T2-weighted FS FSE, sagittal PD-weighted FS FSE, and sagittal T1-weighted SE. COMPARISON: None. FINDINGS: Coracoacromial arch: The acromion undersurface is curved in morphology (type I-II). The coracoacromial ligament is normal. Moderate acromioclavicular osteoarthritis. Rotator cuff: There are multiple suture anchor tracks along the superior and middle facets of the greater tuberosit y as well as at the at the lesser tuberosity consistent with prior rotator cuff repair of the suprasp inatus, infraspinatus and the second portion of the subscapularis tendon. There is mild thickening an d increased signal consistent with mild tendinopathy of the infraspinatus tendon. The supraspinatus t endon appears mildly thinned likely related to prior tear with mild partial-thickness articular sided tear margin positioned 1 cm medial to the level of the apex of the humeral head. TO prior postoperat harpreet imaging and is unclear to what extent this could reflect sequela of a prior tear or potentially p artial thickness recurrent tear. No evident tear defect appreciated along the repaired insertions of the tendons. There is also mild thinning of the cephalad aspect of the subscapularis tendon. The ter es minor tendon is normal. Multiple progression of now mild to moderate fatty atrophy of the cephalad half of the subscapularis muscle belly. Remainder the rotator cuff musculature remains normal. Biceps tendon, glenoid labrum and glenohumeral cartilage: Bicipital tenodesis with anchor site at the cephalad aspect of the intertubercular groove. There is a small defect along the superior glenoid labrum which may represent debridement of the previously tor n biceps anchor. There is amorphous increased signal at the posterosuperior glenoid labrum as well as at the inferior to anteroinferior labrum which could be related to degeneration or blurring of a mor e discrete tear related to small amount of motion on the axial and coronal sequences. There is also a deep appearing partial-thickness cartilage loss near the apex of the humeral head but without underl rob degenerative subchondral changes. Less severe partial thickness cartilage loss with some chondra l surface regularity at the glenoid most prominent anteriorly and superiorly. Unchanged small focus o f underlying subarticular edema-like signal change at the superior rim of the glenoid. Slightly more prominent region of subarticular edema-like signal change at the 3-4:00 position of the anterior mohsen oid with the cartilage appears thicker but with suggestion of a small chondral fissure. Fluid: Physiologic amount of fluid in the glenohumeral joint and biceps tendon sheath. No loose osteochondr al bodies. Small amount of fluid in the subacromial/subdeltoid bursa which could relate either mild b ursitis or decompression of fluid from the joint space through a tiny full-thickness perforation whic h can still be seen even in the setting of a functionally intact rotator cuff repair. Bones: Bone alignment is normal. No fracture or pathologic marrow replacing process. IMPRESSION: 1. Intact appearing extensive rotator cuff repair involving the supraspinatus, infraspinatus and ceph alad aspect of the subscapularis tendon. 2. Bicipital tenodesis. 3. Mild glenohumeral osteoarthritis with labral tear versus degeneration at the posterosuperior and a nteroinferior glenoid and likely debridement of the glenoid long head biceps anchor. 4. Moderate acromioclavicular osteoarthritis. 5. Small amount of fluid in the subacromial/subdeltoid bursa which could be due to bursitis or normal decompression of glenohumeral fiona
--- NOTE | ~2023-03-15 | XR_ITS ---
EXAM: XR shoulder LT min 2V DATE: 03/15/2023 13:24 HISTORY: unknown injury left shoulder pain with neck pain . COMPARISON: 12/26/2016, images only. FINDINGS: Normal mineralization. No fracture or dislocation. No lytic or blastic lesion. Moderate AC joint hypertrophy. Glenohumeral narrowing and osteophytosis. Significant degenerative subchondral cy st formation in the superolateral aspect of the humeral head. Subacromial narrowing. Soft tissue calc ification over the superior rotator cuff. No erosion or periosteal change. Soft tissues within normal limits. IMPRESSION: Moderate polyarticular osteoarthritis. Rotator cuff pathology. Reviewed, dictated and finalized at location K.
--- NOTE | ~2023-03-15 | XR_ITS ---
EXAMINATION: XR_CERV2-3V_CR DATE: 03/15/2023 13:24 INDICATION: Left shoulder pain. Neck pain. TECHNIQUE: 3 views of cervical spine were obtained. COMPARISON: Cervical spine MRI 03/15/2023 FINDINGS: There is 13 degrees dextroscoliosis of cervical spine. There is interbody fusion at C6-C7 w ith focal kyphosis. There is 2 mm anterolisthesis of C4 on C5. There is mildly decreased disc height at C4-C5 and severely decreased disc height at C5-C6. There is multilevel facet joint osteoarthritis, severe on the left at C2-C3 and C4-C5. There is ankylosis of the facet joints at C3-C4. There is mil d central canal stenosis at C4-C5, C5-C6, and C6-C7. No prevertebral soft tissue swelling. IMPRESSION: 1. Severe cervical spondylosis. 2. Interbody fusion at C6-C7. Ankylosis of the facet joints at C3-C4. 3. Cervical dextroscoliosis. Reviewed, dictated and finalized at location A.
== END ==
PROVIDERS: PCP Physician Assistant; Visit Provider Physician Assistant
DX: M47.892 Other spondylosis, cervical region (principal); Z98.1 Arthrodesis status; M75.22 Bicipital tendinitis, left shoulder; M19.012 Primary osteoarthritis, left shoulder
CPT/HCPCS: 72040; 72141; 73030; 73221

== ENCOUNTER 2023-09-22 08:14 | Outpatient (CLI) | payer MEDICARE, SELFPAY ==
--- NOTE | 2023-09-22 08:23 | ECG_ITS ---
Measurements Intervals Moran Rate: 71 P: 16 NJ: 149 QRS: -13 QRSD: 93 T: 15 QT: 336 QTc: 367 Interpretive Statements SINUS RHYTHM WITH SINUS ARRHYTHMIA BASELINE ARTIFACT- I, II, III, AVR, AVL, AVF NORMAL ECG NO PREVIOUS ECG AVAILABLE FOR COMPARISON Electronically Signed On 09-22-2023 10:51:04 EXTRACTOR OPERATOR SOLVENT PROCESS by Duong Palmer D.O.
[2023-09-22 08:39] LABS: White Blood Count 9.4 K/mm3 (4.5-10.0)
[2023-09-22 08:51] LABS: INR 0.9; Prothrombin Time 12.8 Seconds (11.1-14.7)
[2023-09-22 08:52] LABS: Partial Thromboplastin Time 27.7 SECONDS (22.3-36.8)
[2023-09-22 09:59] LABS: Appearance Urine Cloudy (Clear); Bacteria Urine None Seen /hpf; Bilirubin Urine Negative (Negative); Blood Urine Negative (Negative); Color Urine Yellow (Yellow); Glucose Urine UA Negative (Negative); Ketones Urine Negative (Negative); Leukocyte Esterase Ur 1+ LEU/UL (Negative); Nitrate Urine Negative (Negative); Non Pathogenic Casts 0-2; Protein Urine Negative (Negative); RBC Urine 0-2 /hpf (0-2); Specific Grav Ur 1.015 (1.001-1.035); Squamous Epithelial Cell Urine None seen /hpf (Few); Urobilinogen Urine 0.2 mg/dL (<2.0); WBC Urine 21-50 /hpf; pH Urine 5.5 (5.0-9.0)
[2023-09-22 10:11] LABS: Add Urine Microscopic? YES
== END 2023-09-22 08:15 | disposition home or self-care (01) ==
LOC: ANHSURGERY 08:18
PROVIDERS: PCP Physician Assistant; Visit Provider Neurological Surgery
DX: M48.061 Spinal stenosis, lumbar region without neurogenic claudication (principal); Z01.818 Encounter for other preprocedural examination
CPT/HCPCS: 36415; 81001; 85048; 85610; 85730; 87086; 93005

== ENCOUNTER 2023-09-26 01:13 | Day surgery (SDC) | payer MEDICARE, SELFPAY ==
[2023-09-21 14:30] VITALS: BMI 24.6
--- NOTE | 2023-09-21 14:31 | PC.NURSE ---
Report to the Outpatient Waiting Room, entrance under the green pavilion located off [facility], at time _1100_ on date _[id number]_. Planned Procedure Time: _1pm_. Time changes happen often and if your time is changed the preop area will call you the afternoon before. - You and your visitor will be asked to self-screen and do not enter if you have any COVID symptoms. - A mask is optional within the hospital at this time. Patients may have clear liquids (water, carbonated beverages, clear teas, apple juice) until 3 hours prior to surgery with a maximum of 20 ounces. - No food from midnight until time of surgery Take the following medications with a SIP of water the morning of surgery: __Gabapentin and Nifedipine DO NOT STOP ANY OF YOUR OTHER PRESCRIPTION MEDICATIONS PRIOR TO SURGERY ?EXCEPT THE FOLLOWING Medications to discontinue per physician ____Patient stopped Aspirin and Meloxicam [id number] Date to take last dose Please no make-up, nail thai, hairspray, perfume, deodorant, or body powder the day of surgery. No jewelry (including any body piercings) or valuables the day of surgery, leave them at home. Please take a shower or bath the night before, or the morning of, surgery with an antibacterial soap. Wear comfortable, loose fitting clothing. - Jewelry must be removed prior to entering the operating room. Rings and piercings that are not removed may be cut off. - The hospital will not accept responsibility for valuables. - Please leave all valuables, including medications, at home the day of surgery. If you are going home after surgery, a licensed taxi truck driver must drive you home. - NO public transportation without another adult if you receive anesthesia. - We recommend that an adult stay with you for 24 hours following discharge. - We also recommend that you do not drive, make important decision, drink alcoholic beverages, or take any drugs that were not prescribed by your health care provider for at least 24 hours after your discharge time. Follow any additional instructions given to you from your surgeon. If you or anyone in your household have experienced Covid symptoms in the past week, please notify your surgeon or the nurse liaison at the phone number below for possible testing. Telephone instructions given to _Priyank__and asked if any additional questions and then verbalized understanding. Patient advised to call surgeon office or pre surgery nurse liaison [phone] if any additional questions.
[2023-09-26] VITALS (12 sets, daily range): BP systolic 128–168; BP diastolic 67–95; PULSE 68–86; RESP 12–18; TEMP 36.4–37.1; O2SAT 92–100
--- NOTE | ~2023-09-26 | XR_ITS ---
EXAMINATION: XR fluoroscopy no charge DATE: 09/26/2023 15:04 INDICATION: Lumbar laminectomy. TECHNIQUE: A single intraoperative fluoroscopic view of the lumbar spine was obtained. I was not pres ent. Fluoroscopy exposure time was 2 seconds. COMPARISON: None. FINDINGS: There is severe lumbar spondylosis. An instrument overlies the posterior elements at L4. IMPRESSION: 1. Severe lumbar spondylosis. Reviewed, dictated and finalized at location A. RESSIVE CARE UNIT REGISTERED NURSE
[2023-09-26] MEDS: LACTATED RINGERS 1,000 ML 30 ML IV CONT (11:49)
--- NOTE | 2023-09-26 13:00 | WPDANESEPPF ---
Anes - Initial Pre Proc Eval Procedure: Operation Date: 09/26/23 13:00 Proposed Procedures p L1- L4 Lumbar Laminectomy - Nasir Richardson MD Date/Time: 09/26/23 13:00 Surgeon: Nasir Richardson MD Pre Op Diagnosis: L1-L-4 lumbar stenosis Patient Data Age: 72 Gender: M Height: 1.73 m Weight: 72.7 kg Last Vital Signs Temp 98.7 F 09/26/23 12:14 Pulse 86 09/26/23 12:14 Resp 16 09/26/23 12:14 BP 156/81 H 09/26/23 12:14 Pulse Ox 95 09/26/23 12:14 O2 Del Method Room Air 09/26/23 12:14 Allergies Allergy/AdvReac Type Severity Reaction Status Date / Time Penicillins AdvReac Mild Skin Verified 09/26/23 11:29 Reaction Home Medications Medication Instructions Recorded Confirmed Type aspirin 81 mg chewable tablet 81 mg PO DAILY 01/06/23 09/21/23 History finasteride 5 mg tablet 5 mg PO DAILY #90 tabs 06/01/23 08/23/23 Rx tamsulosin 0.4 mg capsule 0.4 mg PO DAILY #90 caps 06/01/23 09/26/23 Rx chlordiazepoxide HCl 5 mg capsule 5 mg PO DAILY #90 caps 06/15/23 09/26/23 Rx meloxicam 15 mg tablet 15 mg PO DAILY #90 tabs 06/20/23 09/21/23 Rx fenofibrate 160 mg tablet 160 mg PO DAILY #90 tabs 07/27/23 09/26/23 Rx lisinopril 10 mg tablet 10 mg PO DAILY #90 tabs 07/27/23 09/26/23 Rx amitriptyline 10 mg tablet 10 mg PO DAILY #90 tabs 08/14/23 09/26/23 Rx fluticasone propionate 50 2 spray intranasal DAILY #48 grams 08/23/23 09/26/23 Rx mcg/actuation nasal spray,suspension (Flonase Allergy Relief) gabapentin 300 mg capsule See Rx Instructions .Route 08/25/23 09/26/23 Rx .COMPLEX #120 caps atorvastatin 10 mg tablet 10 mg PO DAILY #90 tabs 09/11/23 09/26/23 Rx nifedipine 30 mg tablet,extended 30 mg PO DAILY #90 tabs 09/18/23 09/26/23 Rx release hydrocodone 5 mg-acetaminophen 325 1 tablet PO Q6-8H PRN pain #28 tabs 09/21/23 09/21/23 Rx mg tablet Patient hx anesthesia problems: none Family hx anesthesia problems: none Results Review: All pre-operative results and documents have been reviewed as part of the pre-operative evaluation. [facility] Past Medical History Medical History Actinic keratosis Benign prostatic hyperplasia Cerumen impaction Constipation Cough Dyslipidemia (Unknown) Elevated liver enzymes Elevated platelet count Elevated PSA Essential (primary) hypertension Impacted cerumen of right ear Impaired fasting glucose Impaired fasting glucose Low vitamin D level Migraine NOS/intractable Mixed hyperlipidemia Need for hepatitis C screening test Prostatitis Screening for abdominal aortic aneurysm Serum calcium elevated Surgical History Surgical History History of appendectomy History of repair of rotator cuff (~2015) right shoulder Hx of cholecystectomy Family History Family History Father Family history of genitourinary disease Malignant neoplasm of prostate Mother Diabetes mellitus Sibling Family history of malignant neoplasm Social History Social History Social History: Caffeine-coffee daily Smoking packs per day: 2 Smoking cigarettes per day: 40.0 Years smoked: 38 Smoking pack-years: 76.00 Smoking status: Former smoker Tobacco type: cigarettes Smoking end date: 09/21/98 Alcohol intake: current Drinks per week: 1 Alcohol use details: rarely Substance use: never Substance use type: does not use Lack of Transportation: No Lack of Food: Never True Current Housing: I Have Housing Concerned About Future Housing: No Difficulty Paying Gas/Electric Bills: No Difficulty Paying for Meds: No Currently Unemployed: No Education: High School Diploma/GED Difficulty w/ Childcare or Family Care: No Living arrangements: with family Gender identity (if verbalized by the patient): Male Spi
--- NOTE | 2023-09-26 13:26 | PM.IMHP ---
H&P: HPI History of Present Illness Date/Time: 09/26/23 13:26 Chief Complaint: Priyank is a 72-year-old gentleman with neurogenic claudication secondary to spinal stenosis presents for decompression. He has not changed appreciably since we last saw him. He is not having any bowel or bladder difficulty or other constitutional problems. He does not have any specific muscle group weakness or dermatomal numbness. Review of Systems Review of Systems: Patient denies shortness of breath, cough, fever, chills, nausea, vomiting, weight loss, weight gain, chest pain, dysuria. He has back pain, leg pain and claudication as above. His review of systems is otherwise negative on 12 systems except as noted elsewhere. [facility] Past Medical History Medical History Actinic keratosis Benign prostatic hyperplasia Cerumen impaction Constipation Cough Dyslipidemia (Unknown) Elevated liver enzymes Elevated platelet count Elevated PSA Essential (primary) hypertension Impacted cerumen of right ear Impaired fasting glucose Impaired fasting glucose Low vitamin D level Migraine NOS/intractable Mixed hyperlipidemia Need for hepatitis C screening test Prostatitis Screening for abdominal aortic aneurysm Serum calcium elevated Surgical History Surgical History History of appendectomy History of repair of rotator cuff (~2015) right shoulder Hx of cholecystectomy Family History Family History Father Family history of genitourinary disease Malignant neoplasm of prostate Mother Diabetes mellitus Sibling Family history of malignant neoplasm Social History Social History Social History: Caffeine-coffee daily Smoking packs per day: 2 Smoking cigarettes per day: 40.0 Years smoked: 38 Smoking pack-years: 76.00 Smoking status: Former smoker Tobacco type: cigarettes Smoking end date: 09/21/98 Alcohol intake: current Drinks per week: 1 Alcohol use details: rarely Substance use: never Substance use type: does not use Lack of Transportation: No Lack of Food: Never True Current Housing: I Have Housing Concerned About Future Housing: No Difficulty Paying Gas/Electric Bills: No Difficulty Paying for Meds: No Currently Unemployed: No Education: High School Diploma/GED Difficulty w/ Childcare or Family Care: No Living arrangements: with family Gender identity (if verbalized by the patient): Male Spiritual care concerns: No Meds Home Medications and Allergies Home Medications Medication Instructions Recorded Confirmed Type aspirin 81 mg chewable tablet 81 mg PO DAILY 01/06/23 09/21/23 History finasteride 5 mg tablet 5 mg PO DAILY #90 tabs 06/01/23 08/23/23 Rx tamsulosin 0.4 mg capsule 0.4 mg PO DAILY #90 caps 06/01/23 09/26/23 Rx chlordiazepoxide HCl 5 mg capsule 5 mg PO DAILY #90 caps 06/15/23 09/26/23 Rx meloxicam 15 mg tablet 15 mg PO DAILY #90 tabs 06/20/23 09/21/23 Rx fenofibrate 160 mg tablet 160 mg PO DAILY #90 tabs 07/27/23 09/26/23 Rx lisinopril 10 mg tablet 10 mg PO DAILY #90 tabs 07/27/23 09/26/23 Rx amitriptyline 10 mg tablet 10 mg PO DAILY #90 tabs 08/14/23 09/26/23 Rx fluticasone propionate 50 2 spray intranasal DAILY #48 grams 08/23/23 09/26/23 Rx mcg/actuation nasal spray,suspension (Flonase Allergy Relief) gabapentin 300 mg capsule See Rx Instructions .Route 08/25/23 09/26/23 Rx .COMPLEX #120 caps atorvastatin 10 mg tablet 10 mg PO DAILY #90 tabs 09/11/23 09/26/23 Rx nifedipine 30 mg tablet,extended 30 mg PO DAILY #90 tabs 09/18/23 09/26/23 Rx release hydrocodone 5 mg-acetaminophen 325 1 tablet PO Q6-8H PRN pain #28 tabs 09/21/23 09/21/23 Rx mg tablet Allergies Allergy/AdvReac Type Severity Reaction Status Date / Time Penici
--- NOTE | 2023-09-26 13:27 | WPDHPUPDATE1 ---
History and Physical Update Update Date/Time: 09/26/23 13:27 History and Physical has been reviewed, including an updated exam of the patient. There are NO changes in the patient's condition. Risks, benefits, and alternatives have been discussed and questions answered. Patient agrees to proceed with procedure.
[2023-09-26] MEDS: ceFAZolin 2 GM/D5W 50 ML 2 GM/50 ML BAG IVPB (13:32)
[2023-09-26] MEDS: LIDO 1%/EPINEPHRINE 1:100,000 50 ML VIAL 10 ML INFILTRATE (14:12)
[2023-09-26] MEDS: fentaNYL CITRATE INJ (*CRX) 100 MCG/2 ML VIAL 25 MCG IV PUSH ×8 (16:06→17:00)
--- NOTE | 2023-09-26 17:20 | ADMGEN ---
This patient, Priyank Bains, was admitted to Medical Room 253-01. Patient/family oriented to hospital policies and general routines including ID bracelet, bed and alarms, visiting hours, pain management, procedures, bathroom and other care routines, personal items, smoking policy, room service/diet, and visiting hours. Information on how to activate the Rapid Response Team has been discussed. Patient/Family are encouraged to report perceived risks to care and to ask questions if they do not understand what they are told or what they should do.
[2023-09-26] MEDS: HYDROcodone/acetaminophen (*CRX) 10-325 MG TABLET 1 TAB PO ×2 (18:09→21:34)
[2023-09-26] MEDS: KCL 20 MEQ/D5/0.45% SOD CHL 1,000 ML 100 ML IV CONT (18:09)
--- NOTE | 2023-09-26 18:11 | P.OP_ITS ---
Procedure Note - Detailed Date of Procedure 09/26/23 Pre-op Diagnosis L1-L-4 lumbar stenosis Post-op Diagnosis Same Procedure Performed L1-4 laminectomy Surgeon Nasir Richardson MD Anesthesia General Description of Procedure patient was brought to the operating room in the supine position, was sedated, intubated and placed under general anesthesia in routine fashion. He was then turned into the prone position on a Connor frame. The operation was back was examined, marked for incision, prepped and draped in routine sterile fashion. Incision was marked over the L1 through 4 spinous processes in the midline. This area was injected with 0.5% lidocaine with 1 to [id number] epinephrine. Intravenous antibiotics given prior to incision. Incision was made with a 10 blade scalpel down to the lumbar dorsal fascia. A subperiosteal dissection of the muscle soft tissue away from spinous process and lamina at L1-2 for was performed with a subperiosteal elevator and Bovie cautery. A verifying x-rays obtained to verify the level of operation. The L1- 2 4 spinous processes were removed with a horse the rongeur. a Midas Ventura drill within a cord bit was used to thin the lamina midline until the soft contents of the canal were encountered. Kerrison punches and curved curettes were used to define a plane with the dura and remove bone and ligament in the midline. An lateral recess the careful plane was dissected using curved curettes and additional bone and ligament was removed using Kerrison punches. The overgrown ligament was lifted with the curved curette to facilitate remove with the Kerrison punches. these maneuvers were performed until a dental instrument could be placed in lateral epidural space bilaterally to confirm lack compression. The wound was then copiously irrigated with bacitracin irrigation all bleeding stopped with bipolar and Bovie cautery and Gelfoam thrombin powder. The wound was then closed in layered fashion with 2 0 Vicryl interrupted sutures in the level dorsal fascia and scarf is layer. Three 0 Vicryl buried interrupted sutures were placed in the dermis in the skin was closed with a running 4 0 Monocryl subcuticular stitch and dressed with Dermabond. A medium him back drain been left in the sub fascial position buried out the inferior and right of the incision prior to closure. The patient was then allowed wake up in the operating room and was taken to the recovery room in stable condition. There were no immediate complications. All counts were reported correct then the case. Blood loss was 150 cc. The patient was neurologically at his baseline postoperatively. CPT codes: 86907, 24208 x 3 Estimated Blood Loss 150 IV Fluids 1,000 Drains Yes Complications None Condition Stable Disposition PACU [facility] Billing Surgery - Charge Forward: Surgery Billing
[2023-09-26] MEDS: MORPHINE SULFATE (*CRX) 2 MG/ML INJ IV PUSH ×2 (19:47→22:10)
[2023-09-26] MEDS: CYCLOBENZAPRINE HCL 10 MG TABLET PO (21:08)
[2023-09-26] MEDS: TAMSULOSIN HCL 0.4 MG CAPSULE PO (21:09)
[2023-09-26] MEDS: DOCUSATE SODIUM 100 MG CAPSULE PO (21:09)
[2023-09-26] MEDS: lisinopriL 10 MG TABLET PO (21:09)
[2023-09-26] MEDS: ceFAZolin 1 GM/NS 50 ML 1 GM/50 ML BAG IVPB (21:10)
[2023-09-26] MEDS: oxyCODONE/ACETAMINOPHEN (*CRX) 5-325 MG TABLET 1 TABLET PO (22:47)
[2023-09-26] MEDS: oxyCODONE/ACETAMINOPHEN (*CRX) 10-325 MG TABLET 1 TAB PO (23:55)
[2023-09-27] VITALS: BP 156/76; PULSE 69; RESP 16; TEMP 36.6; O2SAT 97
[2023-09-27] MEDS: oxyCODONE/ACETAMINOPHEN (*CRX) 5-325 MG TABLET 1 TABLET PO (03:15)
[2023-09-27] MEDS: CYCLOBENZAPRINE HCL 10 MG TABLET PO (03:15)
[2023-09-27 04:00] VITALS: BP 154/77; PULSE 77; RESP 18; TEMP 36.7; O2SAT 93
[2023-09-27] MEDS: oxyCODONE/ACETAMINOPHEN (*CRX) 10-325 MG TABLET 1 TAB PO ×3 (04:04→13:16)
[2023-09-27] MEDS: ceFAZolin 1 GM/NS 50 ML 1 GM/50 ML BAG IVPB ×2 (04:06→13:12)
[2023-09-27] MEDS: diazePAM (*CRX) 5 MG TABLET PO (04:24)
[2023-09-27 08:13] VITALS: BP 163/89; PULSE 88; RESP 18; TEMP 36.9; O2SAT 97
[2023-09-27] MEDS: DOCUSATE SODIUM 100 MG CAPSULE PO (08:43)
[2023-09-27] MEDS: lisinopriL 10 MG TABLET PO (08:43)
[2023-09-27] MEDS: TAMSULOSIN HCL 0.4 MG CAPSULE PO (08:43)
[2023-09-27 12:13] VITALS: BP 130/79; PULSE 100; RESP 14; TEMP 36.1; O2SAT 93
== END 2023-09-27 15:35 | disposition home or self-care (01) ==
LOC: ANHSURGERY 10:57 → ANH2MED 17:14
PROVIDERS: PCP Physician Assistant; Visit Provider Neurological Surgery
PROC: (CPT 63005; principal; 2023-09-26 13:00)
DX: M48.062 Spinal stenosis, lumbar region with neurogenic claudication (principal); E78.2 Mixed hyperlipidemia; I10 Essential (primary) hypertension; E55.9 Vitamin D deficiency, unspecified; Z79.82 Long term (current) use of aspirin; Z79.891 Long term (current) use of opiate analgesic; Z90.49 Acquired absence of other specified parts of digestive tract; Z87.891 Personal history of nicotine dependence; Z80.42 Family history of malignant neoplasm of prostate
CPT/HCPCS: 63047; 63048 ×2; 36415; 81001; 85048; 85610; 85730; 87086; 93005; 97161; 97165; 97530; 97535; 99199; A9270; J0690; J1100; J1170; J2270; J2371; J2405; J2704; J3010; J3480; J7120

== ENCOUNTER 2023-11-01 08:53 | Outpatient (CLI) | payer MEDICARE, SELFPAY ==
--- NOTE | ~2023-11-01 | XR_ITS ---
EXAMINATION: XR lumbar spine 2-3V DATE: 11/01/2023 09:11 INDICATION: Spinal stenosis, five weeks postop TECHNIQUE: Anteroposterior and lateral views of the lumbar spine, and cone-down lateral view of the l umbosacral junction were obtained. COMPARISON: 08/25/2022 FINDINGS: Bone alignment is normal. There is no fracture. There are 14 degrees of lumbar dextroscolio sis. There is severe loss of intervertebral disc space height on the left at L1-2 and L2-3 and on the right at L4-5. There is moderate uniform loss of disc space height at L5-S1. The vertebral body heig hts are maintained. Small degenerative osteophytes project from the anterior endplates of multiple ve rtebral bodies. Calcified atherosclerosis is noted. Surgical clips in the right upper quadrant are geoffrey fiore from prior cholecystectomy. IMPRESSION: 1. Severe lumbar spondylosis without acute findings or significant interval change. Reviewed, dictated and finalized at location B. SPORTATION SOLUTIONS MANAGER IMPRESSION: 1. Severe lumbar spondylosis without acute findings or significant interval cynthia nge.
== END 2023-11-01 08:54 | disposition home or self-care (01) ==
LOC: ANHIMG 08:56
PROVIDERS: PCP Physician Assistant; Visit Provider Neurological Surgery
DX: M48.062 Spinal stenosis, lumbar region with neurogenic claudication (principal); M48.061 Spinal stenosis, lumbar region without neurogenic claudication; M47.896 Other spondylosis, lumbar region
CPT/HCPCS: 72100

== ENCOUNTER 2023-11-17 12:38 | Outpatient (CLI) | payer MEDICARE, SELFPAY ==
--- NOTE | ~2023-11-17 | XR_ITS ---
Left Knee Technique: AP, lateral, and sunrise views were obtained. Clinical History: Osteoarthritis Findings: No fracture or dislocation is seen. Osseous alignment is anatomic. There is moderate degene rative change of the lateral compartment, with lateral compartment narrowing. There is minimal patell ar spurring. Soft tissues are unremarkable. No joint effusion is seen. Impression: Degenerative changes, as detailed above. Reviewed, dictated and finalized at location M. DESIGNER APPRENTICE Impression: Degenerative changes, as detailed above.
== END 2023-11-17 12:39 | disposition home or self-care (01) ==
PROVIDERS: PCP Physician Assistant; Visit Provider Orthopaedic Surgery
DX: M17.12 Unilateral primary osteoarthritis, left knee (principal)
CPT/HCPCS: 73564

== ENCOUNTER 2024-01-29 07:36 | Outpatient (CLI) | payer MEDICARE, SELFPAY ==
--- NOTE | ~2024-01-29 | MR_ITS ---
MRI of the lumbar spine Clinical History: Spinal stenosis Technique: Axial T2-weighted images, and sagittal T1-weighted, T2-weighted, and and T2 fat-sat images were acquired. Findings: No fracture identified. Minimal grade one antral listhesis of L5 over S1 present. No suspic ious bone marrow signal reality seen. There are reactive marrow signal changes particularly about the L2-L3 disc space, due to underlying degenerative disc disease. At L1-L2, there is advanced degenerative disc narrowing. Mild disc bulge and advanced facet arthropat hy are present, with mild central canal stenosis/thecal sac compression. There is moderate right neur al foraminal narrowing, and severe left neural foraminal narrowing. At L2-L3, there is severe degenerative disc narrowing. Disc bulge and severe facet arthropathy are pr esent. No suleiman central canal stenosis. There is severe left neural foraminal narrowing, and moderate right neural foraminal narrowing. At L3-L4, there is moderate degenerative disc narrowing. Diffuse disc bulge and severe facet arthropa thy are present. No suleiman central canal stenosis. There is severe right neural foraminal narrowing, a nd moderate left neural foraminal narrowing. At L4-L5, there is severe degenerative disc narrowing. There is diffuse disc bulge and advanced facet arthropathy, resulting in severe spinal canal stenosis/thecal sac compression. There is severe right neural foraminal narrowing, and moderate left neural foraminal narrowing. At L5-S1, there is advanced degenerative disc narrowing. There is central disc protrusion with modera te facet arthropathy. There is mild central canal stenosis. There is severe right neural foraminal na rrowing, and moderate left neural foraminal narrowing. Paravertebral soft tissues are unremarkable. Impression: Severe degenerative spondylosis throughout the lumbar spine, as detailed above. Minimal grade 1 retrolisthesis of L5 over S1. Reviewed, dictated and finalized at location M. Impression: Severe degenerative spondylosis throughout the lumbar spine, as detailed above. Minimal grade 1 retrolisthesis of L5 over S1.
== END 2024-01-29 07:37 ==
PROVIDERS: PCP Physician Assistant; Visit Provider Neurological Surgery
DX: M48.062 Spinal stenosis, lumbar region with neurogenic claudication (principal); M47.896 Other spondylosis, lumbar region
CPT/HCPCS: 72148

== ENCOUNTER 2024-04-05 13:07 | Outpatient (CLI) | payer MEDICARE, SELFPAY ==
--- NOTE | ~2024-04-05 | CT_ITS ---
CT Scan of the Chest without Contrast: Clinical Indication: Lung cancer screening, nicotine dependence Technique: Contiguous sections were acquired throughout the chest without intravenous contrast. Dose reduction technique was used on this scan by utilizing automated exposure control and iterative recon struction technique. The dose-length product (DLP) was 91.98 mGy-cm. Findings: There is no evidence of any significant mediastinal, hilar or axillary lymphadenopathy. The mediastin al soft tissues appear normal. There is no evidence of pleural or pericardial effusion. 4 mm lingular nodule noted. There is linear scarring right lower lobe. Images through the upper abdomen reveal nonobstructing right renal stones. Impression: Lung RADS 2: Benign appearance. 12 month follow-up screening CT advised. Reviewed, dictated and finalized at location . Impression: Lung RADS 2: Benign appearance. 12 month follow-up screening CT advised.
== END 2024-04-05 13:08 ==
PROVIDERS: PCP Family Medicine; Visit Provider Family Medicine
DX: Z12.2 Encounter for screening for malignant neoplasm of respiratory organs (principal); Z87.891 Personal history of nicotine dependence
CPT/HCPCS: 71250

== ENCOUNTER 2024-06-13 07:32 | Outpatient (CLI) | payer MEDICARE, SELFPAY ==
[2024-06-13 07:55] LABS: Hematocrit 45.3 % (42.0-52.0); Hemoglobin 14.8 g/dL (14.0-18.0)
[2024-06-13 08:07] LABS: Albumin Level 4.5 g/dL (3.5-5.1); Estimated Glomerular Filt Rate > 60; Glucose 105 mg/dL (65-110)
--- NOTE | 2024-06-13 08:37 | ECG_ITS ---
Test Date: 2024-06-13 08:46:16 Measurements Intervals [place] Rate: 64 P: 14 KS: 148 QRS: -14 QRSD: 98 T: 27 QT: 360 QTc: 372 Interpretive Statements SINUS RHYTHM NORMAL ELECTROCARDIOGRAM No previous ECG available for comparison Electronically Signed On 06-14-2024 10:52:49 CDT by Allen Tian M.D.
[2024-06-13 08:48] LABS: Hemoglobin A1C 6.1 % (<5.7)
[2024-06-13 09:53] LABS: Urine Cotinine NEGATIVE
== END 2024-06-13 07:33 | disposition home or self-care (01) ==
PROVIDERS: PCP Family Medicine; Visit Provider Orthopaedic Surgery
DX: E78.1 Pure hyperglyceridemia (principal); R79.89 Other specified abnormal findings of blood chemistry; Z79.899 Other long term (current) drug therapy; R74.8 Abnormal levels of other serum enzymes; M17.12 Unilateral primary osteoarthritis, left knee; I10 Essential (primary) hypertension
CPT/HCPCS: 80307; 82040; 82565; 82947; 83036; 85014; 85018; 93005

== ENCOUNTER 2024-07-31 11:45 | Outpatient (CLI) | payer MEDICARE, SELFPAY ==
[2024-07-31 12:59] LABS: Basophils Absolute Auto 0.1 K/mm3 (0.0-0.1); Basophils Percent Auto 0.5 % (0.2-1.2); Eosinophils Absolute Auto 1.5 K/mm3 (0-0.3); Eosinophils Percent Auto 13.2 % (0-4.4); Hematocrit 43.2 % (42.0-52.0); Hemoglobin 14.6 g/dL (14.0-18.0); Immature Granulocyte Absolute 0.03 K/mm3 (0.00-0.031); Immature Granulocyte Percent A 0.3 % (0-0.5); Lymphocytes Absolute Auto 3.27 K/mm3 (0.9-3.2); Lymphocytes Percent Auto 28.9 % (18.3-44.2); Mean Corpuscular HGB Conc 33.8 g/dl (32-36); Mean Corpuscular Hemoglobin 32.4 pg (26-34); Mean Platelet Volume 9.8 fl (7.4-10.4); Monocytes Absolute Auto 1.1 K/mm3 (0.1-0.6); Monocytes Percent Auto 9.9 % (2.6-8.5); Neutrophils Absolute Auto 5.3 K/mm3 (1.3-6.7); Neutrophils Percent Auto 47.2 % (45.5-73.1); Platelet Count Result 361 k/mm3 (150-375); Red Cell Distribution Width 13.8 % (11.5-14.5); White Blood Count 11.3 K/mm3 (4.5-10.0)
[2024-07-31 13:09] LABS: Albumin Level 4.8 g/dL (3.5-5.1); Estimated Glomerular Filt Rate > 60; Glucose 92 mg/dL (65-110)
[2024-07-31 13:31] LABS: Urine Cotinine NEGATIVE
[2024-07-31 14:08] LABS: MRSA (PCR) NOT DETECTED (NOT DETECTE)
== END 2024-07-31 11:46 | disposition home or self-care (01) ==
LOC: ANHSURGERY 11:49
PROVIDERS: PCP Family Medicine; Visit Provider Orthopaedic Surgery
DX: M17.12 Unilateral primary osteoarthritis, left knee (principal); Z01.818 Encounter for other preprocedural examination
CPT/HCPCS: 80307; 82040; 82565; 82947; 85025; 87641

== ENCOUNTER 2024-08-29 01:10 | Day surgery (SDC) | payer MEDICARE, SELFPAY ==
--- NOTE | 2024-07-31 11:47 | PC.NURSE ---
Report to the Outpatient Waiting Room, entrance under the green pavilion located off [facility], at time __08:30am__ on date _08/29/24 . Planned Procedure Time: __10:30am .? Time changes happen often and if your time is changed the preop area will call you the afternoon before. - You and your visitor will be asked to self-screen and do not enter if you have any COVID symptoms. Please call surgeon if you need to reschedule. - A mask is optional within the hospital at this time. Patients may have clear liquids (water, carbonated beverages, clear teas, apple juice) until 3 hours prior to surgery with a maximum of 20 ounces. - No food from midnight until time of surgery and no smoking - Infants may have breast milk until 4 hours before surgery, infant formula 6 hours prior to surgery. Take only the following medications with a SIP of water on the morning of surgery: ____ Gabapentin, and Nifedipine . May take Hydrocodone as needed for pain. DO NOT STOP ANY OF YOUR OTHER PRESCRIPTION MEDICATIONS PRIOR TO SURGERY EXCEPT THE FOLLOWING Medications to discontinue per physician ___Hold Aspirin and NSAIDS (meloxicam) 7 days prior to surgery per Dr Rosario. Date to take last dose__08/21/24 Hold all vitamins, supplements, herbs and probiotics for 3 days prior to surgery, Date to take last dose is 08/25/24. Please no make-up, nail chinese, hairspray, perfume, deodorant, or body powder the day of surgery.? No jewelry (including any body piercings) or valuables the day of surgery, leave them at home.? Please take a shower or bath the night before, or the morning of, surgery with an antibacterial soap.? Wear comfortable, loose fitting clothing.? Children are encouraged to wear pajamas. - Jewelry must be removed prior to entering the operating room.? Rings and piercings that are not removed may be cut off. - The hospital will not accept responsibility for valuables.? - Please leave all valuables, including medications, at home the day of surgery. If you are going home after surgery, a licensed coach driver must drive you home.? - NO public transportation without another adult if you receive anesthesia. - We recommend that an adult stay with you for 24 hours following discharge. - We also recommend that you do not drive, make important decision, drink alcoholic beverages, or take any drugs that were not prescribed by your health care provider for at least 24 hours after your discharge time. Follow any additional instructions given to you from your surgeon. Telephone instructions given to ___patient and asked if any additional questions and then verbalized understanding. Patient advised to call surgeon office or pre surgery nurse liaison [phone] if any additional questions.
[2024-07-31 12:08] VITALS: BP 148/76; PULSE 94; RESP 16; TEMP 36.7; O2SAT 98; BMI 25.9
--- NOTE | 2024-08-28 18:02 | WPDANESEPP ---
Anes - Eval Pre Procedure Procedure: Operation Date: 08/29/24 07:30 Proposed Procedures p Left Total Knee Arthroplasty - Steve Rosario MD Date/Time: 08/28/24 18:02 Pre Op Diagnosis: Prim O A Left knee Patient Data Age: 73 Gender: M Height: 1.71 m Weight: 75.8 kg Last Vital Signs Temp 98.0 F 07/31/24 12:08 Pulse 94 07/31/24 12:08 Resp 16 07/31/24 12:08 BP 148/76 H 07/31/24 12:08 Pulse Ox 98 07/31/24 12:08 O2 Del Method Room Air 07/31/24 12:08 Allergies Allergy/AdvReac Type Severity Reaction Status Date / Time Iodinated Contrast Media Allergy Severe Vomiting Verified 08/09/24 10:01 Penicillins AdvReac Mild Skin Verified 08/09/24 10:01 Reaction Home Medications Medication Instructions Recorded Confirmed Type aspirin 81 mg chewable tablet 81 mg PO DAILY 01/06/23 08/09/24 History amitriptyline 10 mg tablet 10 mg PO DAILY #90 tabs 03/08/24 08/09/24 Rx atorvastatin 10 mg tablet 10 mg PO DAILY #90 tabs 03/08/24 08/09/24 Rx finasteride 5 mg tablet 5 mg PO DAILY #90 tabs 05/23/24 08/09/24 Rx tamsulosin 0.4 mg capsule 0.4 mg PO DAILY #90 caps 05/23/24 08/09/24 Rx doxycycline monohydrate 100 mg 100 mg PO DAILY #90 caps 06/11/24 08/09/24 Rx capsule chlordiazepoxide HCl 5 mg capsule 5 mg PO DAILY #90 caps 06/17/24 08/09/24 Rx meloxicam 15 mg tablet 15 mg PO DAILY #90 tabs 07/04/24 08/09/24 Rx fenofibrate 160 mg tablet 160 mg PO DAILY #90 tabs 07/18/24 08/09/24 Rx ascorbic acid (vitamin C) 500 mg 500 mg PO DAILY 07/31/24 08/09/24 History tablet multivitamin 1 tablet PO DAILY 07/31/24 08/09/24 History omega 6-xwb-npi-fish oil 300 1 cap PO DAILY 07/31/24 08/09/24 History mg-1,000 mg capsule (Fish Oil) lisinopril 10 mg tablet 10 mg PO DAILY #90 tabs 08/05/24 08/09/24 Rx ciprofloxacin HCl 250 mg tablet 250 mg PO Q12H #10 tabs 08/09/24 Rx hydrocodone 5 mg-acetaminophen 325 1 - 2 tablet PO Q4H PRN pain #60 08/12/24 Rx mg tablet tabs gabapentin 300 mg capsule 600 mg PO BID #120 caps 08/20/24 Rx nifedipine 30 mg tablet,extended 30 mg PO DAILY #90 tabs 08/27/24 Rx release Patient hx anesthesia problems: none Family hx anesthesia problems: none Results Review: All pre-operative results and documents have been reviewed as part of the pre-operative evaluation. [facility] Past Medical History Medical History Actinic keratosis Benign prostatic hyperplasia Cerumen impaction Cervical radiculopathy Complete tear of left rotator cuff Constipation Dyslipidemia (Unknown) Elevated liver enzymes Elevated liver enzymes Elevated platelet count Elevated PSA Elevated PSA Essential (primary) hypertension History of smoking Impacted cerumen of right ear Low vitamin D level Migraine NOS/intractable Mixed hyperlipidemia Need for hepatitis C screening test Prediabetes Prostatitis Raynaud's syndrome without gangrene Screening for abdominal aortic aneurysm Serum calcium elevated Surgical History Surgical History History of appendectomy History of repair of rotator cuff (~2015) right shoulder Hx of cholecystectomy Spinal surgery in prior 3 months Family History Family History Father Family history of genitourinary disease Malignant neoplasm of prostate Mother Diabetes mellitus Sibling Family history of malignant neoplasm Social History Social History Social History: Caffeine-coffee daily Smoking packs per day: 1 Smoking cigarettes per day: 20.0 Years smoked: 40 Smoking pack-years: 40.00 Smoking status: Former smoker Tobacco type: cigarettes Smoking end date: 09/21/98 Additional smoking assessment comments: NO nicotine Alcohol intake: current Drinks per week: 7 Alcohol use details: rarely Substance use: never Substa
[2024-08-29] VITALS (15 sets, daily range): BP systolic 126–157; BP diastolic 63–86; PULSE 70–103; RESP 10–20; TEMP 36–36.9; O2SAT 93–99; BMI 26.6
--- NOTE | ~2024-08-29 | XR_ITS ---
EXAMINATION: [id number] DATE: 08/29/2024 09:45 INDICATION: Postoperative evaluation following left total knee arthroplasty. TECHNIQUE: Anteroposterior and lateral views of the left knee were obtained. COMPARISON: 06/05/2024 FINDINGS: Left total knee arthroplasty with patellar resurfacing appears well seated and in near anatomic align ment. No fractures identified. Expected postoperative subcutaneous and intra-articular gas. IMPRESSION: 1. Left total knee arthroplasty, negative for postoperative purposes. Reviewed, dictated and finalized at location A.
[2024-08-29] MEDS: TRANEXAMIC ACID 1,000MG/ISO100 1,000 MG/100 ML BAG 200 MG IVPB (07:00)
[2024-08-29] MEDS: ACETAMINOPHEN 500 MG TABLET 1000 MG PO (07:00)
[2024-08-29] MEDS: LACTATED RINGERS 1,000 ML 30 ML IV CONT ×2 (07:00→09:25)
--- NOTE | 2024-08-29 07:08 | WPDANESEFPP ---
Anes - Eval Final PreProcedure Day of Procedure 08/29/24 07:08 Patient weight: overweight Heart: regular rate and rhythm Lungs: clear to auscultation Airway: Mallampati scale class 1 Neurological: alert and oriented Last oral intake: >/= 8 hours ASA classification: III Emergent: no Anesthetic plan: proceed Anesthesia type and monitoring: general Results Review: All pre-operative results and documents have been reviewed as part of the pre-operative evaluation. Informed Consent: The patient's anesthetic plan and its attendant risks and benefits were discussed with the patient/family/POA. Questions were solicited and answers provided to the satisfaction of the patient/family/POA.
--- NOTE | 2024-08-29 07:15 | WPDHPUPDATE1 ---
History and Physical Update Update Date/Time: 08/29/24 07:15 History and Physical has been reviewed, including an updated exam of the patient. There are NO changes in the patient's condition. Risks, benefits, and alternatives have been discussed and questions answered. Patient agrees to proceed with procedure.
[2024-08-29] MEDS: ceFAZolin 2 GM/D5W 50 ML 2 GM/50 ML BAG IVPB ×3 (07:18→23:33)
[2024-08-29] MEDS: SODIUM CHLORIDE 0.9% IV 37.7 ML, MORPHINE SULFATE INJ (*CRX) 2 MG, ROPivacaine HCL 1% 2... INFILTRATE (07:48)
[2024-08-29] MEDS: GENTAMICIN BONE CEMENT REFOBACIN 1 EACH TOPICAL (08:49)
--- NOTE | 2024-08-29 10:05 | W.PM.PROC2 ---
Procedure Note - Detailed Date of Procedure 08/29/24 Pre-op Diagnosis Left knee degenerative arthritis. Post-op Diagnosis Same Procedure Performed Calipered, kinematically aligned total knee replacement left knee. Surgeon Steve Rosario MD Blocklayer Madonna Castillo PA-C Anesthesia General Findings According to the calipered kinematic alignment principles, the knee was balanced by the following verification checks incorporating 6 caliper measurements, using an insert goniometer to select the insert thickness, and adjusting the tibial resection following the kinematic alignment algorithm (see figure 160.10 published in [facility] chapter on kinematic alignment total knee arthroplasty.) The steps verified the femoral and tibial components were kinematically aligned coincident to the patient's pre arthritic joint lines, which closely restored the [place] tibial compartment forces and ligament laxities without ligament release. The [employer] MedTest DXriKA knee, designed specifically for kinematic alignment, fit optimally. The record of verification checks were documented and scanned into the chart. Distal Femoral Resection: Distal lateral 6 mm(cartilage worn), Distal medial 8 mm Target thickness of 8mm Unworn, 6mm Worn (No Cartilage). Posterior Femoral Resection: Posterior lateral 5 mm(cartilage worn), Posterior medial 7 mm. Target thickness of 7mm Unworn, 5mm Worn (No Cartilage). Tibia varus preoperative 5 degrees; postoperative 5 degrees. Tibia slope preoperative 6 degrees; postoperative 5 degrees. Description of Procedure General anesthesia was administered. A well-padded tourniquet was placed high on the thigh. The limb was prepped and draped in the usual sterile fashion. The limb was exsanguinated and the tourniquet inflated to 300 mmHg. A longitudinal incision was created over the midline of the knee. Sharp dissection was taken through subcutaneous tissues. Electrocautery was used for hemostasis. A trivector approach to the knee joint was performed. The ACL, anterior horns of the menisci, and fat pad were excised, and a subperiosteal dissection was carried along the posterior medial border of the tibia. The thickness of the [place] patella was measured with a caliper. The patella was resected using the oscillating saw. The best fitting anatomic patella button was selected. The fixation holes were drilled. When the patella and patella buttons combined thickness was thicker than the [place] patella, the patella was recut. Starting midway between the top of the notch in the anterior femoral cortex, I drilled a 9 mm diameter hole parallel to the anterior cortex to minimize flexion of the femoral component and promote patella tracking. I verified the existence of a 5-10 mm bone bridge between the posterior aspect of the hole and the anterior limit of the intercondylar notch. An intraosseous positioning thao was inserted 10 cm into the femur perpendicular to the distal joint line and parallel to the anterior cortex. I used a distal femoral referencing guide that compensated 2 mm when the cartilage was worn on the distal medial femoral condyle, and 2 mm when the cartilage was worn on the distal lateral femoral condyle. The basis for setting the distal and posterior femoral resection guide is knowing that the varus and valgus grade II to IV Kellegren-Manjit osteoarthritic knees have negligible bone wear at 0? and 90? and that the mean full-thickness cartilage wear approximates 2 mm. I measured the thickness of distal femoral resections with a caliper to +/- 0.5 mm. The thickness of each resection was adjusted to match the thickness of the respective condyle of the femoral component within 0.5 mm of target after compensating for cartilage wear and kerf. When the distal resection was 1-2 mm too thin, a recut guide was used to adjust the cut. When the distal resection was too thick, a 1 or 2 mm thick washer was fixed to the back of the 4-in-1 cynthia
--- NOTE | 2024-08-29 11:00 | ADMGEN ---
This patient, Priyank Bains, was admitted to Medical Room 252-01. Patient/family oriented to hospital policies and general routines including ID bracelet, bed and alarms, visiting hours, pain management, procedures, bathroom and other care routines, personal items, smoking policy, room service/diet, and visiting hours. Information on how to activate the Rapid Response Team has been discussed. Patient/Family are encouraged to report perceived risks to care and to ask questions if they do not understand what they are told or what they should do.
[2024-08-29] MEDS: MULTIVITAMINS THERAPEUTIC TAB (*BKC) 1 TABLET PO (11:42)
[2024-08-29] MEDS: ACETAMINOPHEN 325 MG TABLET 650 MG PO ×3 (11:42→23:33)
[2024-08-29] MEDS: lisinopriL 10 MG TABLET PO (11:42)
[2024-08-29] MEDS: ASPIRIN 81 MG ENTERIC TABLET PO ×2 (11:43→20:08)
[2024-08-29] MEDS: NIFEdipine 30 MG TAB.ER.24 PO (11:43)
[2024-08-29] MEDS: GABAPENTIN 300 MG CAPSULE 600 MG PO ×2 (11:43→20:07)
[2024-08-29] MEDS: FINASTERIDE 5 MG TABLET PO (11:43)
[2024-08-29] MEDS: SODIUM CHLORIDE 0.9% IV 1,000 ML 125 ML IV CONT (11:45)
[2024-08-29] MEDS: oxyCODONE/ACETAMINOPHEN (*CRX) 10-325 MG TABLET 1 TAB PO ×2 (12:42→20:07)
[2024-08-29] MEDS: predniSONE 5 MG TABLET PO (17:03)
[2024-08-29] MEDS: MELOXICAM 7.5 MG TABLET PO (17:03)
[2024-08-29] MEDS: SENNA/DOCUSATE SODIUM TABLET 2 TAB PO (17:03)
[2024-08-29] MEDS: TAMSULOSIN HCL 0.4 MG CAPSULE PO (20:07)
[2024-08-29] MEDS: AMITRIPTYLINE HCL 10 MG TABLET PO (20:07)
[2024-08-29] MEDS: FAMOTIDINE 20 MG TABLET PO (20:08)
[2024-08-29] MEDS: FENOFIBRATE 160 MG TABLET PO (20:08)
[2024-08-29] MEDS: ATORVASTATIN 10 MG TABLET PO (20:08)
[2024-08-30 00:07] VITALS: BP 120/60; PULSE 73; RESP 18; TEMP 36.6; O2SAT 93
[2024-08-30] MEDS: oxyCODONE/ACETAMINOPHEN (*CRX) 10-325 MG TABLET 1 TAB PO (03:59)
[2024-08-30 04:36] VITALS: BP 135/74; PULSE 68; RESP 18; TEMP 36.5; O2SAT 94
[2024-08-30 05:13] VITALS: BP 135/74; PULSE 68; RESP 18; TEMP 36.5; O2SAT 94
[2024-08-30 05:13] LABS: Basophils Absolute Auto 0.1 K/mm3 (0.0-0.1); Basophils Percent Auto 0.4 % (0.2-1.2); Eosinophils Absolute Auto 0.1 K/mm3 (0-0.3); Eosinophils Percent Auto 0.7 % (0-4.4); Hematocrit 36.5 % (42.0-52.0); Hemoglobin 12.3 g/dL (14.0-18.0); Immature Granulocyte Absolute 0.06 K/mm3 (0.00-0.031); Immature Granulocyte Percent A 0.4 % (0-0.5); Lymphocytes Absolute Auto 2.77 K/mm3 (0.9-3.2); Lymphocytes Percent Auto 17.8 % (18.3-44.2); Mean Corpuscular HGB Conc 33.7 g/dl (32-36); Mean Corpuscular Hemoglobin 32.3 pg (26-34); Mean Corpuscular Volume 95.8 fl (80-100); Mean Platelet Volume 9.9 fl (7.4-10.4); Monocytes Absolute Auto 1.8 K/mm3 (0.1-0.6); Monocytes Percent Auto 11.3 % (2.6-8.5); Neutrophils Absolute Auto 10.8 K/mm3 (1.3-6.7); Neutrophils Percent Auto 69.4 % (45.5-73.1); Platelet Count Result 325 k/mm3 (150-375); Red Blood Count 3.81 M/mm3 (4.6-6.20); Red Cell Distribution Width 13.7 % (11.5-14.5); White Blood Count 15.5 K/mm3 (4.5-10.0)
[2024-08-30 05:24] LABS: Anion Gap 6 mmol/L (4-12); Blood Urea Nitrogen 23 mg/dL (9-20); Calcium 9.6 mg/dL (8.4-10.2); Carbon Dioxide 27 mmol/L (22-30); Chloride 106 mmol/L (98-107); Estimated CRCL calculation 44 ml/min; Estimated Glomerular Filt Rate 54; Glucose 102 mg/dL (65-110); Potassium 4.1 mmol/L (3.4-5.0); Sodium 139 mmol/L (137-145)
[2024-08-30] MEDS: ACETAMINOPHEN 325 MG TABLET 650 MG PO (06:21)
[2024-08-30] MEDS: ceFAZolin 2 GM/D5W 50 ML 2 GM/50 ML BAG IVPB (06:21)
--- NOTE | 2024-08-30 07:53 | PM.DS ---
DS: Admitting Diagnosis Discharge Date 08/30/24 Admitting Diagnosis OA knee Left DS: Discharge Diagnosis Discharge Diagnosis (1) Status post total left knee replacement: Code(s): Z96.652 - Presence of left artificial knee joint Status: Acute Assessment and Plan: Postop day 1: Left total knee arthroplasty. Patient tolerated procedure well. No complications. Pain manageable with pain medication. No numbness or tingling. We had a lengthy discussion regarding postoperative wound care, limitations, expectations, and exercises. Patient shows good understanding. He has had initial physical therapy and is tolerating it well. DVT prophylaxis: 81 mg baby aspirin b.i.d. for 14 days. Pain medication: Percocet. Prednisone. Patient has followup appointment with Dr. Rosario in 3 weeks. DS: Summary Hospital Course Reason for hospitalization: Total knee arthroplasty Hospital Course: Patient tolerated procedure well. Has had initial PT/OT. Status at Discharge Functional status at discharge: uses cane/walker Overall status at discharge: patient is progressing back to baseline Time Spent with Patient Time attestation: Total time spent providing and/or coordinating discharge services: Exam Narrative: Normal weight 73 y/o Male. Resting comfortably in bed. Wearing compression socks bilaterally. Dressing intact with no drainage. Mild swelling. No ecchymosis. No erythema. No hematoma. Range of motion limited due to pain. Quad fires. Calf nontender. Neurologic status intact. No varicosities. Distal pulses palpable. DS: Data Data Completed and Pending Labs on day of discharge: Labs from last 24 hours 08/30/24 08/29/24 05:03 06:53 WBC 15.5 H RBC 3.81 L Hgb 12.3 L Hct 36.5 L MCV 95.8 MCH 32.3 MCHC 33.7 RDW 13.7 Plt Count 325 MPV 9.9 Immature Gran % (Auto) 0.4 Neut % (Auto) 69.4 Lymph % (Auto) 17.8 L [place] % (Auto) 11.3 H Eos % (Auto) 0.7 Baso % (Auto) 0.4 Lymph # (Auto) 2.77 [place] # (Auto) 1.8 H Eos # (Auto) 0.1 Baso # (Auto) 0.1 Abs Immat Gran (auto) 0.06 H Absolute Neuts (auto) 10.8 H Absolute Nucleated RBC 0.000 Nucleated RBC % 0.0 Sodium 139 Potassium 4.1 Chloride 106 Carbon Dioxide 27 Anion Gap 6 BUN 23 H Creatinine 1.30 Estim Creat Clear Calc 44 Estimated GFR 54 L Glucose 102 Calcium 9.6 Blood Type A Positive Antibody Screen Negative Discharge Plan Discharge Patient Disposition: Home, Self-Care Discharge Instructions: See green instruction sheets Patient Instructions: Pain Management (DC) Stand Alone Forms: General Discharge Instructions Follow-up/Referrals: Madonna Castillo PA [Physician Supervisor [employer]] - Discharge Medications: New aspirin 81 mg tablet,delayed release (DR/EC) 81 mg PO BID 14 Days Qty: 28 0RF prednisone 5 mg tablet 5 mg PO DAILY 21 Days Qty: 21 0RF oxycodone-acetaminophen 5-325 mg tablet 1 - 2 tablet PO Q4-6H PRN (Reason: pain) 7 Days Qty: 30 0RF Continued multivitamin Tablet 1 tablet PO DAILY ascorbic acid (vitamin C) 500 mg Tablet 500 mg PO DAILY omega 0-icm-dok-fish oil [Fish Oil] 300-1,000 mg Capsule 1 cap PO DAILY amitriptyline 10 mg tablet 10 mg PO DAILY Qty: 90 3RF Rx Instructions: Please call and schedule an appointment for your wellness exam. atorvastatin 10 mg tablet 10 mg PO DAILY Qty: 90 3RF finasteride 5 mg tablet 5 mg PO DAILY Qty: 90 1RF tamsulosin 0.4 mg capsule 0.4 mg PO DAILY Qty: 90 1RF doxycycline monohydrate 100 mg capsule 100 mg PO DAILY Qty: 90 1RF chlordiazepoxide HCl 5 mg capsule 5 mg PO DAILY Qty: 90 2RF meloxicam 15 mg tablet 15 mg PO DAILY Qty: 90 1RF fenofibrate 160 mg tablet 160 mg PO DAILY Qty: 90 1RF lisinopril 10 mg tablet 10 mg PO DAILY Qty: 90 1RF ciprofloxacin HCl 250 mg tablet 250 mg PO Q12H Qt
[2024-08-30] MEDS: ASPIRIN 81 MG ENTERIC TABLET PO (08:07)
[2024-08-30] MEDS: traMADol HCL (*CRX) 50 MG TABLET PO (08:07)
[2024-08-30] MEDS: FAMOTIDINE 20 MG TABLET PO (08:07)
[2024-08-30] MEDS: GABAPENTIN 300 MG CAPSULE 600 MG PO (08:07)
[2024-08-30] MEDS: MULTIVITAMINS THERAPEUTIC TAB (*BKC) 1 TABLET PO (08:08)
[2024-08-30] MEDS: polyethylene glycoL 3350 17 GM POWD.PACK PO (08:08)
[2024-08-30] MEDS: NIFEdipine 30 MG TAB.ER.24 PO (08:08)
[2024-08-30] MEDS: MELOXICAM 7.5 MG TABLET PO (08:08)
[2024-08-30] MEDS: FINASTERIDE 5 MG TABLET PO (08:08)
[2024-08-30] MEDS: lisinopriL 10 MG TABLET PO (08:08)
[2024-08-30] MEDS: SENNA/DOCUSATE SODIUM TABLET 2 TAB PO (08:08)
[2024-08-30 08:36] VITALS: BP 149/77; PULSE 67; RESP 14; TEMP 36.6; O2SAT 95
--- NOTE | 2024-08-30 11:38 | P.PNAN_ITS ---
Anes - Prog Note Post-Op Date/Time: 08/30/24 11:38 Cardiovascular status: normal Respiratory status: normal Airway patency: baseline Mental status: baseline Post-Op hydration status: normal Vital Signs: Last Vital Signs Temp 36.6 C 08/30/24 08:36 Pulse 67 08/30/24 08:36 Resp 14 08/30/24 08:36 BP 149/77 H 08/30/24 08:36 Pulse Ox 95 08/30/24 08:36 O2 Del Method Room Air 08/29/24 11:45 O2 Flow Rate 2 08/29/24 10:50 Pain Score (VAS): 0 I/O: Intake & Output 08/29/24 08/30/24 08/30/24 23:59 07:59 15:59 Intake Total 480 440 Output Total 1 Balance 480 439 Laboratory Tests 08/30/24 05:03 08/30/24 05:03 08/30/24 05:03 WBC 15.5 H RBC 3.81 L Hgb 12.3 L Hct 36.5 L MCV 95.8 MCH 32.3 MCHC 33.7 RDW 13.7 Plt Count 325 MPV 9.9 Immature Gran % (Auto) 0.4 Neut % (Auto) 69.4 Lymph % (Auto) 17.8 L [place] % (Auto) 11.3 H Eos % (Auto) 0.7 Baso % (Auto) 0.4 Lymph # (Auto) 2.77 [place] # (Auto) 1.8 H Eos # (Auto) 0.1 Baso # (Auto) 0.1 Abs Immat Gran (auto) 0.06 H Absolute Neuts (auto) 10.8 H Absolute Nucleated RBC 0.000 Nucleated RBC % 0.0 Sodium 139 Potassium 4.1 Chloride 106 Carbon Dioxide 27 Anion Gap 6 BUN 23 H Creatinine 1.30 Estim Creat Clear Calc 44 Estimated GFR 54 L Glucose 102 Calcium 9.6 Post-procedural complaints: none Patient Feedback: Patient satisfied with anesthetic care.
== END 2024-08-30 09:45 | disposition home or self-care (01) ==
LOC: ANHSURGERY 09:39 → ANH2MED 10:53
PROVIDERS: Physician Assistant Surgical; PCP Family Medicine; Visit Provider Orthopaedic Surgery
PROC: (CPT 27447; principal; 2024-08-29 07:30)
DX: M17.12 Unilateral primary osteoarthritis, left knee (principal); M25.762 Osteophyte, left knee; I10 Essential (primary) hypertension; E78.2 Mixed hyperlipidemia; R73.03 Prediabetes; N40.0 Benign prostatic hyperplasia without lower urinary tract symptoms; E55.9 Vitamin D deficiency, unspecified; L57.0 Actinic keratosis; I65.8 Occlusion and stenosis of other precerebral arteries; Z79.82 Long term (current) use of aspirin; Z79.891 Long term (current) use of opiate analgesic; Z98.890 Other specified postprocedural states; Z90.49 Acquired absence of other specified parts of digestive tract; Z87.891 Personal history of nicotine dependence; Z80.42 Family history of malignant neoplasm of prostate
CPT/HCPCS: 27447; 36415; 73560; 80048; 85025; 86850; 86900; 86901; 97110; 97116; 97161; 97165; 97530; 97535; C1776; A9270; C1713; J0171; J0690; J1100; J1171; J1885; J2270; J2405; J2704; J2795; J3010; J7030; J7120; J7512

== ENCOUNTER 2024-10-15 08:08 | Outpatient (CLI) | payer MEDICARE, SELFPAY ==
--- NOTE | ~2024-10-15 | XR_ITS ---
XR knee LT 3V 10/15/2024 08:33 Indication: Left knee arthroplasty Procedure: 3 views left knee Comparison: 11/17/2023 Findings: There is a left total knee arthroplasty. Prosthesis well seated. No fracture or traumatic m alalignment. No significant joint effusion. No foreign bodies. Impression: 1: No acute bone or joint abnormality. Reviewed, dictated and finalized at location B. S DEVELOPMENT ASSOCIATE Impression: 1: No acute bone or joint abnormality.
== END 2024-10-15 08:09 | disposition home or self-care (01) ==
LOC: MICIMG 08:10
PROVIDERS: PCP Family Medicine; Visit Provider Family Medicine
DX: Z96.652 Presence of left artificial knee joint (principal)
CPT/HCPCS: 73562

== ENCOUNTER 2025-01-20 01:15 | Day surgery (SDC) | payer MEDICARE, SELFPAY ==
[2025-01-07 11:15] VITALS: BMI 24.1
--- NOTE | 2025-01-07 11:22 | PC.NURSE ---
Report to the Outpatient Waiting Room, entrance under the green pavilion located off [facility], at time ___1pm____ on date __01/20/25 . Planned Procedure Time: _3pm .? Time changes happen often and if your time is changed the preop area will call you the afternoon before. - You and your visitor will be asked to self-screen and do not enter if you have any COVID symptoms. Please call surgeon if you need to reschedule. - A mask is optional within the hospital at this time. Patients may have clear liquids (water, carbonated beverages, clear teas, apple juice) until 3 hours prior to surgery with a maximum of 20 ounces. - No food from midnight until time of surgery and no smoking, or chewing tobacco (or any form of nicotine). No chewing gum, candy or mints. (1200pm) Take only the following medications with a SIP of water on the morning of surgery: Gabapentin, Nifedipine, Antibiotics if still on, and Hydrocodone as needed DO NOT STOP ANY OF YOUR OTHER PRESCRIPTION MEDICATIONS PRIOR TO SURGERY EXCEPT THE FOLLOWING Pt is to HOLD all Aspirin and NSAIDS/Meloxicam for [address] Senior. Date to take last dose 01/12/25 Hold all vitamins and supplements for 3 days per anesthesiologist. Date to take last dose 01/12/25 ( pt prefers to stop all same as other meds to remember) Please no make-up, nail maori, hairspray, perfume, deodorant, or body powder the day of surgery.? No jewelry (including any body piercings) or valuables the day of surgery, leave them at home.? Please take a shower or bath the night before, or the morning of, surgery with an antibacterial soap.? Wear comfortable, loose fitting clothing.? Children are encouraged to wear pajamas. - Jewelry must be removed prior to entering the operating room.? Rings and piercings that are not removed may be cut off. - The hospital will not accept responsibility for valuables.? - Please leave all valuables, including medications, at home the day of surgery. If you are going home after surgery, a licensed local tanker truck driver must drive you home.? - NO public transportation without another adult if you receive anesthesia. - We recommend that an adult stay with you for 24 hours following discharge. - We also recommend that you do not drive, make important decision, drink alcoholic beverages, or take any drugs that were not prescribed by your health care provider for at least 24 hours after your discharge time. Follow any additional instructions given to you from your surgeon. Telephone instructions given to __Patient and asked if any additional questions and then verbalized understanding. Patient advised to call surgeon office or pre surgery nurse liaison [phone] if any additional questions.
--- OUTSIDE RECORDS SUMMARY | 2025-01-20 01:18 | XMS_ITS | Clinical Summary ---
Author Organization [facility] Address [facility] [place] [address] Care Team Providers Care Sausage Meat Trimmer Name Role Phone Arpan Lazaro MD Primary Care Provider [phone] Allergies Active Allergy Reactions Criticality Noted Date Comments Penicillins Unknown 01/29/2020 Medications amitriptyline 10 MG tablet 12/23/2019 Active atorvastatin 10 MG tablet 01/09/2020 Active finasteride 5 MG tablet 12/23/2019 Active lisinopril-hydroch lorothiazide 10-12.5 MG tablet 12/12/2019 A ctive NIFEdipine XL 30 MG 24 hr tablet 12/23/2019 Act harpreet tamsulosin 0.4 MG Cap 12/26/2019 Active Immunizations Name Administration Dates Next Due Tdap (Boostrix) 01/29/2020 Social History Tobacco Use Types Packs/Day Years Used Date Smoking Tobacco: Never Smokeless Tobacco: Never Alcohol Use Standard Drinks/Week Comments Not Currently 0 (1 standard drink = 0.6 oz pur e alcohol) AUDIT-C Answer Date Recorded Frequency of Alcohol Consumption Never 01/29/2020 Average Number of Drinks Not on file 020 Frequency of Binge Drinking Not on file 01/11 Sex and Gender Information Value Date Recorded Sex Assigned at Not on file Legal Sex Male 11:11 AM CDT Gender Identity Not on file Sexual Orientation Not on file Last Filed Vital Signs Vital Sign Reading Time Taken Comments Blood Pressure 160/87 01/29/2020 11:18 AM CDT Pulse 87 01/29/2020 11:18 AM CDT Temperature 36.9 C (98.4 F) 01/29/2020 11:18 AM CDT Respiratory Rate 18 01/29/2020 11:18 AM CDT Oxygen Saturation 100% 01/29/2020 11:18 AM CDT Inhaled Oxygen Concentration - - Weight 70.3 kg (155 lb) 01/29/2020 11:18 AM CDT Height 172.7 cm (5' 8 ) 01/29/2020 11:18 AM CDT Body Mass Index 23.57 01/29/2020 11:18 AM CDT Plan of Treatment Health Maintenance Due Date Last Done Comments Colorectal Cancer Screening Colonoscopy (10 Years) 1952 Hepatitis C 1970 Zoster Vaccines (1 of 2) 2002 Annual Medicare Wellness Visit 2017 Pneumococcal Vaccine: 65+ Ye ars (1 of 1 - PCV) 2017 COVID-19 Vaccine ( - 2023-2 5 season) 2024 Influenza Adult (#1) 2024 RSV Immunization or 60+ Years (1 - 1-dose 75+ series) 2027 DTaP, Tdap and Td Vaccines ( 2 - Td or Tdap) 01/28/2030 01/29/2020 Meningococcal B Vaccine Aged Out No l onger eligible based on patient's age to complete this topic Meningococcal Vaccine Aged Out No simone meryl eligible based on patient's age to complete this topic RSV Immunizations Under 20 Months Aged Out No longer eligible based on patient's age to complete this topic Insurance [employer] Care Teams Sausage Meat Trimmer Relationship Specialty Start Date End Date Arpan Lazaro MD [address] [place] [address] PCP - General FAMILY PRACTICE 01/29/20
--- OUTSIDE RECORDS SUMMARY | 2025-01-20 01:18 | XMS_ITS | Referral Summary ---
Author Organization [facility] Address [address] [place] [address] Care Team Providers Care Bend Sorter Name Role Phone Unavailable Primary Care Provider Unavailabl e Source Comments [facility],non-owned Affiliates and Associated Physician Practices is amultiple site organization consisting of ambulatory clinics and hospital sitesin [place], [place], [place] and [place]. This disclosure is being madepursuant to the Care Everywhere program and may not contain all information available regarding this patient. Last updated 18.[facility] Social History Tobacco Use Types Packs/Day Years Used Date Smoking Tobacco: Never Assessed Sex and Gender Information Value Date Recorded Sex Assigned at Not on file Gender Identity Not on file Sexual Orientation Not on file Last Filed Vital Signs Vital Sign Reading Time Taken Comments Blood Pressure 120/80 04/02/2014 11:03 AM CDT Pulse 65 02/20/2014 10:40 AM CDT Temperature 36.7 C (98.1 F) 04/02/2014 11:03 AM CDT Respiratory Rate 16 02/20/2014 10:55 AM CDT Oxygen Saturation 91% 02/20/2014 10:40 AM CDT Inhaled Oxygen Concentration - - Weight 79.4 kg (175 lb) 09/17/2014 8:41 AM APPOINTMENT SPECIALIST Height 167.6 cm (5' 6 ) 09/17/2014 8:41 AM APPOINTMENT SPECIALIST Body Mass Index 28.25 09/17/2014 8:41 AM APPOINTMENT SPECIALIST Plan of Treatment Not on file
--- OUTSIDE RECORDS SUMMARY | 2025-01-20 01:18 | XMS_ITS | Patient Health Summary ---
Author Organization [facility] Address [address] [place] [address] Care Team Providers Care Intelligence Intern Name Role Phone Unavailable Primary Care Provider Unavailabl e Note from [facility],non-owned Affiliates and Associated Physician Practices is amultiple site organization consisting of ambulatory clinics and hospital sitesin [place], [place], [place] and [place]. This disclosure is being madepursuant to the Care Everywhere program and may not contain all information available regarding this patient. 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 Anatomical Region Laterality Modality Upper Extremity Other Impressions 03/05/2014 12:06 PM CDT Impression: Few lucencies at the greater tuberosity/bicipital groove, could be related to prior surgery or represent cysts, unchanged. This report was approved by Delano Contreras M.D. on 03/05/2014 11:[address] WILLY Kellogg MD have personally reviewed and interpreted this examination/study. This report was electronically signed by WILLY LEWIS MD on 03/05/2014 12:06 PM . Narrative 03/05/2014 12:06 PM CDT Right shoulder 3 views. Date: 03/05/14. History: Shoulder pain. Status post SLAP and biceps tendon debridement/tenotomy on 06/14/13 Comparison: 08/25/13. Findings: There is no acute fracture or dislocation. The glenohumeral joint space is maintained and there is no significant degenerative change. The acromioclavicular joint is intact with no significant degenerative change. Few lucencies are seen at the greater tuberosity/bicipital groove could be related to prior surgery or represent cysts, unchanged. Bone mineralization is normal. Procedure Note Willy Lewis MD - 02/10/2018 Right shoulder 3 views. Date: 03/05/14. History: Shoulder pain. Status post SLAP and biceps tendondebridement/tenotomy on 06/14/13 Comparison: 08/25/13. Findings: There is no acute fracture or dislocation. The glenohumeral joint space ismaintained and there is no significant degenerative change. Theacromioclavicular joint is intact with no significant degenerative change.Few lucencies are seen at the greater tuberosity/bicipital groove could be related to prior surgery or representcysts, unchanged. Bone mineralization is normal. IMPRESSION Impression: Few lucencies at the greater tuberosity/bicipital groove, could be relatedto prior surgery or represent cysts, unchanged. This report was approved by Delano Contreras M.D. on 03/05/2014 11:[address] WILLY Kellogg MD have personally reviewed and interpreted thisexamination/study. This report was electronically signed by WILLY LEWIS MD on 03/05/201412:06 PM . Nasir Liu MD DIAGNOSTIC IMAGING O SHEELABLES
--- OUTSIDE RECORDS SUMMARY | 2025-01-20 01:18 | XMS_ITS | Clinical Summary ---
Author Organization [facility] Address [address] [place] [address] Care Team Providers Care Staffing Account Manager Name Role Phone Unavailable Primary Care Provider Unavailabl e Source Comments [facility],non-owned Affiliates and Associated Physician Practices is amultiple site organization consisting of ambulatory clinics and hospital sitesin [place], [place], [place] and [place]. This disclosure is being madepursuant to the Care Everywhere program and may not contain all information available regarding this patient. Last updated 18.[facility] [employer] Social History Tobacco Use Types Packs/Day Years [...] 79.4 kg (175 lb) 09/17/2014 8:41 AM SAND SCREENER Height 167.6 cm (5' 6 ) 09/17/2014 8:41 AM SAND SCREENER Body Mass Index 28.25 09/17/2014 8:41 AM SAND SCREENER Plan of Treatment Health Maintenance Due Date Last Done Comments COLOGUARD (AGES 45-75) - COL ON CA SCREENING 1952 COLON MONITORING 1952 COLONOSCOPY - COLON CA SCREENING 1952 CT COLONOGRAPHY - COLON CA SCREENING 1950 Colorectal Cancer Screening 1952 FIT - COLON CA SCREENING 1952 FLEX SIG - COLON CA SCREENING 1952 LIPID TESTING 1950 HEPATITIS C SCREENING 10/27/1970 DTAP/TDAP/TD VACCINES (1 - Tdap) 1971 PNEUMOCOCCAL VACCINE 50+ (1 of 1 - PCV) 2002 ZOSTER VACCINE (1 of 2) 2002 COVID-19 VACCINE ( - 2023-2 5 season) 2024 INFLUENZA VACCINE (#1) 2024 DEPRESSION SCREENING 11/13/2024 Respiratory Syncytial Virus (RSV) Vaccine Pt: or over 60 yrs (1 - 1-dose 75+ series) 2027 HEPATITIS B VACCINE Aged Out No longe r eligible based on patient's age to complete this topic HIB VACCINE Aged Out No longer eligi ble based on patient's age to complete this topic HPV VACCINE Aged Out No longer eligi ble based on patient's age to complete this topic MENINGOCOCCAL (Group B) VACCINE Aged Out No longer eligible based on patient's age to complete this topic MENINGOCOCCAL VACCINE Aged Out No simoen meryl eligible based on patient's age to complete this topic
--- OUTSIDE RECORDS SUMMARY | 2025-01-20 01:18 | XMS_ITS | Clinical Summary ---
Author Organization [facility] Address [address] [place] [id number] Care Team Providers Care 3D Technologist Name Role Phone Sanchez Lazaro MD Primary Care Provider [phone] Allergies Active Allergy Reactions Criticality Noted Date Comments Penicillins Unknown 01/29/2020 Medications valACYclovir (VALTREX) 1 gram tablet TAKE 1 TABLET BY MOUTH TWICE DAILY FOR 7 DAYS 07/16/2021 Active tamsulosin (FLOMAX) 0.4 mg extended release capsule Take 0.4 mg by mouth daily 06/16/2021 Active NIFEdipine CC 30 mg 24 hr tablet Take 30 mg by mouth daily 06/16/2021 Active meloxicam (MOBIC) 15 mg tablet Take 15 mg by mouth daily 05/30/2021 Active lisinopriL (PRINIVIL,ZESTR IL) 10 mg tablet Take 10 mg by mouth daily 05/30/2021 Active hydroCHLOROthia zide (HYDRODIURIL) 12.5 mg tablet Take 12.5 mg by mouth daily 05/30/2021 Active finasteride (PROSCAR) 5 mg tablet Take 5 mg by mouth daily 06/18/2021 Active fenofibrate (TRIGLIDE) 160 mg tablet Take 160 mg by mouth daily 05/12/2021 Active ciprofloxacin (CIPRO) 250 mg tablet 07/20/2021 Active chlordiazePOXID E (LIBRIUM) 5 mg capsule TAKE 1 CAPSULE BY MOUTH DAILY NEEDED FOR ANXIETY 06/30/2021 Active atorvastatin (LIPITOR) 10 mg tablet Take 10 mg by mouth daily 06/30/2021 Active amitriptyline (ELAVIL) 10 mg tablet Take 10 mg by mouth daily 06/16/2021 Active Active Problems No known active problems Surgical History Surgery Date Site/Laterality Comments ROTATOR CUFF REPAIR 11/13/2014 - 11/12/2015 Bilateral CERVICAL DISC SURGERY 11/13/1999 - 11/12/2000 Medical History Medical History Date Comments High blood pressure Gastroesophageal reflux Kidney stones Migraines BPH (benign prostatic hyperplasia) Family History Medical History Relation Name Comments Prostate cancer Father mouth cancer Mother Relation Name Status Comments Father Mother Social History Tobacco Use Types Packs/Day Years Used Date Smoking Tobacco: Former AUDIT-C Answer Date Recorded Q1: How often do you have a drink containing alc ohol? Monthly or less 07/22/2021 Q2: How many drinks containi ng alcohol do you have on a typical day when you are drinking? 1 or 2 07/22/2021 Frequency of Binge Drinking Not on file 07/2021 Personal Safety Answer Date Recorded Getting School Help Needed Not on file 01/12 Sex and Gender Information Value Date Recorded Sex Assigned at Not on file Legal Sex Male 12:24 AM CDT Gender Identity Not on file Sexual Orientation Not on file Obstetrics History Last Filed Vital Signs Vital Sign Reading Time Taken Comments Blood Pressure 163/91 07/22/2021 10:12 AM CDT Pulse 62 07/22/2021 10:12 AM CDT Temperature - - Respiratory Rate - - Oxygen Saturation - - Inhaled Oxygen Concentration - - Weight 70.8 kg (156 lb 1.6 oz) 07/22/2021 10:12 AM CDT Height 172.7 cm (5' 8 ) 07/22/2021 10:12 AM CDT Body Mass Index 23.73 07/22/2021 10:12 AM CDT Plan of Treatment Not on file Insurance [facility] MDCR HMO REF [facility] Address: [address] [address] [place] [address] [facility] MDCR HMO REF [facility] Address: [address] [address] [place] [address] Care Teams 3D Technologist Relationship Specialty Start Date End Date Sanchez Lazaro MD [address] [place] [address] PCP - General Family Medicine 05/03/21
--- OUTSIDE RECORDS SUMMARY | 2025-01-20 01:18 | XMS_ITS | Continuity of Care Document ---
Author Organization [facility] Address [address] [place] [address] [address] [place] [address] Phone Care Team Providers Care Paint Tester Name Role Phone Parr OD, Cresencio Unavailable Unavailable Procedures Procedure Date Revise Eyelashes Advance Directives Directive Yes / No Effective Date File Name No Information Encounters Encounter Description Practice Location Reason(s) For Visit Diagnoses Date Provider Providers Copied on Encounter [facility], [address], [place], [place], [id number], [place] tel:[phone] [facility] No Information 3-200 9 Parr OD Cresencio. [address], [place], [address], [place]. tel:[phone] Family History Family Member Type Diagnosis Age At Onset No Information Payers Payer name Insurance type Covered libertarian ID Authoriza sharanraven(s) [employer] [id number] Social History Type Description Quantity Date Captured Comments Sex Male Smoking Status No Information Chief Complaint And Reason For Visit No Information Reason For Referral Reason For Referral No Information History Of Present Illness Encounter Date Complaint History Of Prese nt Illness No Information Functional Status Date Functional Assessmen t No Information Instructions Date Instruction Additional Infor mation No Information Assessments Type Assessment Date No Information Patient Care Teams Name Effective Dates (start - stop) Status Members No Information
--- OUTSIDE RECORDS SUMMARY | 2025-01-20 01:18 | XMS_ITS | Referral Summary ---
Author Organization [facility] Address [address] [place] [address] Care Team Providers Care E Commerce Architect Name Role Phone Sanchez Lazaro MD Primary Care Provider [phone] Allergies Active Allergy Reactions Criticality Noted Date [...] Active Active Problems No known active problems Social History Tobacco Use Types Packs/Day Years [...] Plan of Treatment Not on file Insurance [facility] MDCR HMO REF Care Teams E Commerce Architect Relationship Specialty Start Date End Date Sanchez Lazaro MD [address] [place] [address] PCP - General Family Medicine 05/03/21
--- OUTSIDE RECORDS SUMMARY | 2025-01-20 01:18 | XMS_ITS | Continuity of Care Document ---
Author Organization [facility] Address [address] [place] [address] Phone Care Team Providers Care Car Repairman Name Role Phone Ashely Angel PTA Unavailable Unavailable Procedures Procedure Date Therapeutic Activities Neuromuscular Re-Ed Therapeutic Activities Neuromuscular Re-Ed Remote therapeutic monitor monthly mgmt 20m Therapeutic Activities Neuromuscular Re-Ed Therapeutic Activities Neuromuscular Re-Ed Therapeutic Activities Neuromuscular Re-Ed Therapeutic Activities Neuromuscular Re-Ed Therapeutic Activities Neuromuscular Re-Ed Therapeutic Activities Neuromuscular Re-Ed Therapeutic Activities Neuromuscular Re-Ed Therapeutic Activities Neuromuscular Re-Ed Therapeutic Exercise Doc neg elder mal no plan PT Evaluation Low Complexity Therapeutic Activities Neuromuscular Re-Ed Advance Directives Directive Yes / No Effective Date File Name No Information Encounters Encounter Description Practice Location Reason(s) For Visit Diagnoses Date Provider Providers Copied on Encounter [facility], [address], [place], [place], [id number], [place] tel:[phone] [facility] No Information Dec-0 4-202 4 Lurtz Ashely. . Referring Provider: Steve Rosario [facility] [address], [place], [address]. tel:[phone] [facility] [address] [place] [address] [address], [place], [place], [id number], tel:[phone] [place] No Information Dec-0 2-202 4 Lurtz Ashely. . Referring Provider: Steve Rosario [address] [place] [address] [address], [place], [address]. tel:[phone] [facility], [address] [place] [address] [address], [place], [place], [id number], [place] tel:[phone] [place] Muscle weakness (generalized)Stiffne ss of left knee, not elsewhere classifiedAftercare following joint replacement surgeryPresence of left artificial knee joint Nov-3 0-202 4 Kadeem Albertyn. . Referring Provider: Steve Rosario [facility] [address], [place], [place], [facility]. tel:[phone] [facility] [address] [place] [address] [address], [place], [place], [id number], [place] tel:[phone] [place] No Information Nov-2 7- 4 Kadeem Albertyn. . Referring Provider: Steve Rosario [address] [place] [address] [address], [place], [facility]. tel:[phone] [facility] [address] [place] [address], [id number], [place] tel:[phone] [place] No Information Nov-2 5- 4 Shelbyrtrodney Ashely. . Referring Provider: Steve Rosario [address] [place] [address] [address], [place], [address]. tel:[phone] [facility] [address] [facility] [address], [place], [place], [id number], [place] tel:[phone] [place] No Information Nov-2 0-202 4 Lurtz Ashely. . Referring Provider: Krishna Sellers [facility] [address], [place], [address]. tel:[phone] [facility], [address], [place], [place], [id number], [place] tel:[phone] [place] No Information Nov-1 8-202 4 Lurtz Ashely. . Referring Provider: Krishna Sellers [facility] [address], [place], [address]. tel:[phone] [facility] [address], [place], [place], [id number], [place] tel:[phone] [place] No Information Nov-1 3-202 4 Kadeem Jeffy. . Referring Provider: Krishna Sellers [facility] [address], [place], [address]. tel:[phone] [facility], [facility] [address], [place], [place], [id number], [place] tel:[phone] [place] No Information Nov-0 7-202 4 Kadeem Jeffy. . Referring Provider: Krishna Sellers [facility] [address], [place], [address]. tel:[phone] [facility] [address], [place], [place], [id number], [place] tel:[phone] [place] No Information Nov-0 6-202 4 Lurtz Ashely. . Referring Provider: Krishna Sellers [place] [address] [address], [place], [address]. tel: [facility], [address], [place], [place], [id number], [place] tel:[phone] [place] No Information Nov-0 4-202 4 Lurtz Ashely. . Referring Provider: Krishna Sellers [facility] [address], [place], [address]. tel:[phone] [facility], [address], [place], [place], [id number], [place] tel:[phone] [place] No Information 4 Kadeem Victoria . Referring Provider: Steve Rosario , [address], [place], [address]. tel:[phone] Family History Family Member Type Diagnosis Age At Onset No Information Payers Payer name Insurance type Covered republican ID Authorjenn eagle(s) AARP Medicare Complete 16 [id number] Social History Type Description Quantity Date Captured [...]
--- NOTE | 2025-01-20 11:21 | WPDHPUPDATE1 ---
History and Physical Update Update Date/Time: 01/20/25 11:21 History and Physical has been reviewed, including an updated exam of the patient. There are NO changes in the patient's condition. Risks, benefits, and alternatives have been discussed and questions answered. Patient agrees to proceed with procedure.
[2025-01-20 12:57] VITALS: BP 155/97; PULSE 76; RESP 18; TEMP 36.4; O2SAT 96
[2025-01-20] MEDS: KETOROLAC 15 MG/ML VIAL (*BKC) IV PUSH (13:35)
[2025-01-20] MEDS: ACETAMINOPHEN 500 MG TABLET 1000 MG PO (13:42)
[2025-01-20] MEDS: BUPIVACAINE/EPINEPHRINE 0.5% 50 ML VIAL 20 ML INFILTRATE (14:12)
--- NOTE | 2025-01-20 14:38 | P.PNAN_ITS ---
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 Patient Data Age: 74 Gender: M Height: 1.73 m Weight: 70.5 kg Last Vital Signs Temp 36.4 C 01/20/25 12:57 Pulse 76 01/20/25 12:57 Resp 18 01/20/25 12:57 BP 155/97 H 01/20/25 12:57 Pulse Ox 96 01/20/25 12:57 O2 Del Method Room Air 01/20/25 12:57 Allergies Allergy/AdvReac Type Severity Reaction Status Date / Time Iodinated Contrast Media Allergy Severe Vomiting Verified 01/20/25 13:07 Penicillins AdvReac Mild Skin Verified 01/20/25 13:07 Reaction Home Medications ?Medication ?Instructions ?Recorded ?Confirmed ?Type aspirin 81 mg chewable tablet 81 mg PO DAILY 01/06/23 01/20/25 History amitriptyline 10 mg tablet 10 mg PO DAILY #90 tabs 03/08/24 01/20/25 Rx atorvastatin 10 mg tablet 10 mg PO DAILY #90 tabs 03/08/24 01/20/25 Rx chlordiazepoxide HCl 5 mg capsule 5 mg PO DAILY #90 caps 06/17/24 01/20/25 Rx meloxicam 15 mg tablet 15 mg PO DAILY #90 tabs 07/04/24 01/20/25 Rx fenofibrate 160 mg tablet 160 mg PO DAILY #90 tabs 07/18/24 01/20/25 Rx ascorbic acid (vitamin C) 500 mg 500 mg PO DAILY 07/31/24 01/20/25 History tablet multivitamin 1 tablet PO DAILY 07/31/24 01/17/25 History omega 8-drz-gvt-fish oil 300 1 cap PO DAILY 07/31/24 01/20/25 History mg-1,000 mg capsule (Fish Oil) lisinopril 10 mg tablet 10 mg PO DAILY #90 tabs 08/05/24 01/20/25 Rx nifedipine 30 mg tablet,extended 30 mg PO DAILY #90 tabs 08/27/24 01/20/25 Rx release tamsulosin 0.4 mg capsule 0.4 mg PO DAILY #90 caps 11/15/24 01/20/25 Rx finasteride 5 mg tablet See Rx Instructions .Route 11/19/24 01/20/25 Rx .COMPLEX #90 tabs gabapentin 300 mg capsule 600 mg (2 x 300 mg) PO BID #120 11/19/24 01/20/25 Rx caps methocarbamol 750 mg tablet 750 mg PO TID #30 tabs 01/02/25 01/20/25 Rx doxycycline monohydrate 100 mg See Rx Instructions .Route 01/06/25 01/20/25 Rx capsule .COMPLEX #90 caps hydrocodone 5 mg-acetaminophen 325 1 - 2 tablet PO Q4H PRN pain #60 01/13/25 01/17/25 Rx mg tablet tabs oxycodone-acetaminophen 5 mg-325 1 - 2 tablet PO Q4-6H PRN pain 7 01/20/25 Rx mg tablet days #30 tabs Patient hx anesthesia problems: none Family hx anesthesia problems: none Results Review: All pre-operative results and documents have been reviewed as part of the pre- operative evaluation. [facility] Past Medical History Medical History History of smoking Prediabetes Elevated PSA Elevated liver enzymes Raynaud's syndrome without gangrene Complete tear of left rotator cuff Cervical radiculopathy Elevated PSA Need for hepatitis C screening test Dyslipidemia (Unknown) Screening for abdominal aortic aneurysm Low vitamin D level Elevated platelet count Elevated liver enzymes Serum calcium elevated Prostatitis Impacted cerumen of right ear Cerumen impaction Actinic keratosis Benign prostatic hyperplasia Constipation Essential (primary) hypertension Migraine NOS/intractable Mixed hyperlipidemia Surgical History Surgical History Spinal surgery in prior 3 months History of repair of rotator cuff (~2015) right shoulder History of appendectomy Hx of cholecystectomy Family History Family History Father Family history of genitourinary disease Malignant neoplasm of prostate Mother Diabetes mellitus Sibling Family history of malignant neoplasm Social History Social History Social History: Caffeine-coffee daily Smoking packs per day: 1 Smoking cigarettes per day: 20.0 Years smoked: 30 Smoking pack-years: 30.00 Smoking status: Former smoker Tobacco type: cigarettes Smoking end date: 09/21/98 Additional smoking assessment comments: NO nicotine Alcohol intake: current Drinks per week: 1 Alcohol use details: rarely Substance use: never Substance use type: does not use Do You Feel Safe in your Home?: Yes Lack of Transportation: No Lack of Food: Never True Current Housing: I Have Housing Concerned About Future Housing: No Difficulty Paying Gas/Electric Bills: No Difficulty Paying for Meds: No Currently Unemployed: No Education: High School Diploma/GED Difficulty w/ Childcare or Family Care: No Living arrangements: with family Additional living arrangements comments: Gender identity (if verbalized by the patient): Male Spiritual care concerns: No Anes - Eval Final PreProcedure Day of Procedure 01/20/25 14:38 Patient weight: normal Heart: regular rate and rhythm Lungs: clear to auscultation Airway: Mallampati scale class III Neurological: alert and oriented Last oral intake: >/= 8 hours ASA classification: III Emergent: no Anesthetic plan: proceed Anesthesia type and monitoring: general LMA and standard monitoring Results Review: All pre-operative results and documents have been reviewed as part of the pre- operative evaluation. Informed Consent: The patient's anesthetic plan and its attendant risks and benefits were discussed with the patient/family/POA. Questions were solicited and answers provided to the satisfaction of the patient/family/POA.
[2025-01-20] MEDS: ceFAZolin 2 GM/D5W 50 ML 2 GM/50 ML BAG IVPB (14:44)
[2025-01-20 15:45] VITALS: BP 116/68; PULSE 67; RESP 12; TEMP 36.6; O2SAT 100
[2025-01-20] MEDS: LACTATED RINGERS 1,000 ML 30 ML IV CONT (15:45)
[2025-01-20 16:00] VITALS: BP 144/76; PULSE 60; RESP 16; O2SAT 96
[2025-01-20 16:15] VITALS: BP 146/81; PULSE 65; RESP 19; O2SAT 97
[2025-01-20 16:25] VITALS: BP 152/82; PULSE 63
--- NOTE | 2025-01-20 16:47 | W.PM.PROC2 ---
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 Post-op Diagnosis Same Procedure Performed Arthroscopic synovectomy left knee, status post total knee arthroplasty. Surgeon Steve Rosario MD Anesthesia General Indications Reproducible painful clicking between 20 and 30? in the superior lateral suprapatellar bursa area, 4 months status post total knee arthroplasty without other complications. Findings Synovial hyperemia in the area of the superior lateral pouch. Some thickening of the fascial bands and prominence of the fat pad overlying the anterior distal lateral tibia. This appeared to be impinging and was debrided with the radiofrequency probe and Chad. Lateral capsule scar tissue was released. No other evidence of impingement. Subtle areas of synovial scar tissue around the patella and intercondylar notch were debrided. There was mild inflammatory fluid without sign of infection. A culture sample was taken. Description of Procedure The patient was identified and the surgical site confirmed and signed in the preoperative holding area. Antibiotics were started per protocol, and the patient was brought to the operative room and transferred to the OR table. A general anesthetic was administered. Supine position with the operative lower extremity position in the leg winston after placement of a well padded tourniquet. The leg support was lowered and the contralateral limb was supported with a soft bolster. The knee was prepped and draped in the usual sterile fashion. A time-out was performed. The portal sites were marked and infiltrated with 0.5% Marcaine 20 mL. The limb was exsanguinated and the tourniquet inflated to 300 mL Hg. Standard inferolateral and inferomedial portals were established. Inflow was obtained with the saline pump. The camera was introduced. Diagnostic inspection of the joint was accomplished. The prominent synovial tissue in the suprapatellar pouch and in the peripatellar area was debrided with the arthroscopic shaver and punches until stable. The radiofrequency probe was also used for further d?bridement. Lateral retinacular tissue in this area had some prominent bands of tissue that were released. The arthroscopic instruments were removed. The tourniquet released and wounds closed with subcutaneous 4-0 Monocryl absorbable suture. Steri strips and a sterile dressing were applied. A light elastic wrap was placed. The patient was extubated and brought to the recovery room in stable condition. Estimated Blood Loss 5 Drains No Pathology Yes (Synovial fluid sample sent for cultures and Gram stain.) Complications No immediate complications Condition Stable Disposition PACU [facility] Billing Surgery - Charge Forward: Surgery Billing
[2025-01-20 16:55] VITALS: BP 167/88; PULSE 69
== END 2025-01-20 17:05 | disposition home or self-care (01) ==
PROVIDERS: PCP Family Medicine; Visit Provider Orthopaedic Surgery
PROC: (CPT 29870; principal; 2025-01-20 15:00)
DX: M25.862 Other specified joint disorders, left knee (principal); R73.03 Prediabetes; N40.0 Benign prostatic hyperplasia without lower urinary tract symptoms; I10 Essential (primary) hypertension; E78.2 Mixed hyperlipidemia; E55.9 Vitamin D deficiency, unspecified; I73.00 Raynaud's syndrome without gangrene; L57.0 Actinic keratosis; Z79.82 Long term (current) use of aspirin; Z79.891 Long term (current) use of opiate analgesic; Z98.890 Other specified postprocedural states; Z96.652 Presence of left artificial knee joint; Z90.49 Acquired absence of other specified parts of digestive tract; Z87.891 Personal history of nicotine dependence; Z80.42 Family history of malignant neoplasm of prostate
CPT/HCPCS: 29876; 87070; 87075; 87205; A9270; J0690; J1100; J1171; J1885; J2003; J2405; J2704; J3010; J7120

== ENCOUNTER 2025-05-26 02:00 | Day surgery (SDC) | payer MEDICARE, SELFPAY ==
--- NOTE | 2025-05-15 11:01 | PC.NURSE ---
Report to the Outpatient Waiting Room, entrance under the green pavilion located off [facility], at time 1:00 PM on date _05/26/25 . Planned Procedure Time: __3:00 PM .? Time changes happen often and if your time is changed the preop area will call you the afternoon before. - You and your visitor will be asked to self-screen and do not enter if you have any COVID symptoms. Please call surgeon if you need to reschedule. - A mask is optional within the hospital at this time. Patients may have clear liquids (water, carbonated beverages, clear teas, apple juice) until 3 hours prior to surgery ( 1200 ) with a maximum of 20 ounces. - No food from midnight until time of surgery and no smoking, or chewing tobacco (or any form of nicotine). No chewing gum, candy or mints. - Take only the following medications with a SIP of water on the morning of surgery: _GABAPENTIN,NIFEDIPINE,OXYCODONE IF NEEDED FOR PAIN DO NOT STOP ANY OF YOUR OTHER PRESCRIPTION MEDICATIONS PRIOR TO SURGERY EXCEPT THE FOLLOWING Hold all vitamins and supplements for 3 days per anesthesiologist.LAST DOSE 05/22/25 Medications to discontinue per physician ____ASPIRIN AND MELOXICAM HOLD 7 DAYS PRE OP PER DR SUBRAMANIAN Date to take last dose___05/18/25 Please no make-up, nail kyrgyz, hairspray, perfume, deodorant, or body powder the day of surgery.? No jewelry (including any body piercings) or valuables the day of surgery, leave them at home.? Please take a shower or bath the night before, or the morning of, surgery with an antibacterial soap.? Wear comfortable, loose fitting clothing.? Children are encouraged to wear pajamas. - Jewelry must be removed prior to entering the operating room.? Rings and piercings that are not removed may be cut off. - The hospital will not accept responsibility for valuables.? - Please leave all valuables, including medications, at home the day of surgery. If you are going home after surgery, a licensed charter and tour bus driver must drive you home.? - NO public transportation without another adult if you receive anesthesia. - We recommend that an adult stay with you for 24 hours following discharge. - We also recommend that you do not drive, make important decision, drink alcoholic beverages, or take any drugs that were not prescribed by your health care provider for at least 24 hours after your discharge time. For Pediatric surgeries, we recommend two adults accompany the child home. Follow any additional instructions given to you from your surgeon. Telephone instructions given to __PATIENT and asked if any additional questions and then verbalized understanding. Patient advised to call surgeon office or pre surgery nurse liaison [phone] if any additional questions.
[2025-05-15 11:28] VITALS: BMI 24.3
[2025-05-26] VITALS (7 sets, daily range): BP systolic 112–168; BP diastolic 60–95; PULSE 64–74; RESP 10–16; TEMP 36.6; O2SAT 94–99
--- OUTSIDE RECORDS SUMMARY | 2025-05-26 02:02 | XMS_ITS | Referral Summary ---
Author Organization [facility] Address [address] [place] [address] Care Team Providers Care Learning Developer Name Role Phone Allen Woodson MD Primary Care Provider [phone] Encounters Date Type Department Care Team Description 03/25/2025 1:50 PM CDT - 03/25/2025 11:59 PM CDT Hospital Encounter [facility] - Imaging [address] [place] [address] Other specified joint disorders, left knee; Presence of left artificial knee joint Discharge Disposition: Discharge to home or self care from Last 3 Months Allergies Active Allergy Reactions Criticality Noted Date [...] of Binge Drinking Not on file 07/2021 Sex and Gender Information Value Date Recorded [...] 10:12 AM CDT Height 172.7 cm (5' 8) 07/22/2021 10:12 AM CDT Body Mass Index 23.73 07/22/2021 10:12 AM CDT Plan of Treatment Not on file Procedures Procedure Name Priority Date/Time Associated Diagnosis Comments MRI KNEE LEFT WO CONTRAST Schedule Routine, Read Routine (OP Routine) 03/25/2025 3:37 PM CDT Other specified joint disorders, left knee Presence of left artificial knee joint from Last 3 Months Results * MRI Knee Left WO Contrast (03/25/2025 3:37 PM CDT) Anatomical Region Laterality Modality Lower Extremities Left Magnetic Reson ance 03/25/2025 3:43 PM CDT Impressions 03/25/2025 3:43 PM CDT 1. Status post left total knee replacement. Metal susceptibility artifact degrades overall image evaluation. 2. Small to moderate left knee joint effusion with small popliteal cyst. There is fluid/edema tracking caudal to the popliteal cyst into the proximal calf which may reflect partial rupture. 3. Nonspecific subcutaneous edema over the left knee which is greatest anteriorly. Electronically signed by: Keo Wood M.D. Narrative 03/25/2025 3:43 PM CDT EXAM: MRI KNEE LEFT WO CONTRAST CLINICAL HISTORY: Left knee pain. Left knee replacement. TECHNIQUE: MR imaging of the left knee was performed utilizing metal artifact reduction sequences. COMPARISON: None available. FINDINGS: The patient is status post left total knee replacement. There is metal susceptibility artifact identified which degrades overall evaluation of this examination. There is linear marrow change in the distal femur from prior hardware placement. There is no MR evidence of fracture or malalignment. No additional marrow signal abnormalities are identified on this examination. There is a small to moderate left knee joint effusion with small popliteal cyst. There is edema tracking caudal to the popliteal cyst into the calf which may reflect partial rupture. The patellar and quadriceps tendons are intact. There is subcutaneous edema over the left knee which is greatest anteriorly. Procedure Note Keo Wood MD - 03/25/2025 EXAM: MRI KNEE LEFT WO CONTRAST CLINICAL HISTORY: Left knee pain. Left knee replacement. TECHNIQUE: MR imaging of the left knee was performed utilizing metal artifact reduction sequences. COMPARISON: None available. FINDINGS: The patient is status post left total knee replacement. There is metal susceptibility artifact identified which degrades overall evaluation of this examination. There is linear marrow change in the distal femur from prior hardware placement. There is no MR evidence of fracture or malalignment. No additional marrow signal abnormalities are identified on this examination. There is a small to moderate left knee joint effusion with small popliteal cyst. There is edema tracking caudal to the popliteal cyst into the calf which may reflect partial rupture. The patellar and quadriceps tendons are intact. There is subcutaneous edema over the left knee which is greatest anteriorly. IMPRESSION: 1. Status post left total knee replacement. Metal susceptibility artifact degrades overall image evaluation. 2. Small to moderate left knee joint effusion with small popliteal cyst. There is fluid/edema tracking caudal to the popliteal cyst into the proximal calf which may reflect partial rupture. 3. Nonspecific subcutaneous edema over the left knee which is greatest anteriorly. Electronically signed by: Keo Wood M.D. Steve Rosario MD IMG MRI PROCEDURES Final R esult from Last 3 Months Insurance UHC MEDICARE ADVANTAGE [facility] MEDICARE Address: [place] [id number] [facility] MEDICARE Address: [facility] [address] [place] [address] UHC MEDICARE ADVANTAGE Care Teams Learning Developer Relationship Specialty Start Date End Date Allen Woodson MD [address] [place] [address] [address] PCP - General Family Medicine 03/19/25
--- OUTSIDE RECORDS SUMMARY | 2025-05-26 02:02 | XMS_ITS | Clinical Summary ---
Author Organization [facility] Address [address] [place] [address] Care Team Providers Care Computer Patternmaker Name Role Phone Unavailable Primary Care Provider Unavailabl e Source Comments [facility],non-owned Affiliates and Associated Physician Practices is amultiple site organization consisting of ambulatory clinics and hospital sitesin [place], [place], [place] and [place]. This disclosure is being madepursuant to the Care Everywhere program and may not contain all information available regarding this patient. Last updated 18.[facility] [employer] Social History Tobacco Use Types Packs/Day Years Used Date Smoking Tobacco: Never Assessed Sex and Gender Information Value Date Recorded Sex Assigned at Not on file Legal Sex Male 5:24 AM INSTRUCTOR WEAVING Gender Identity Not on file Sexual Orientation [...] 79.4 kg (175 lb) 09/17/2014 8:41 AM INSTRUCTOR WEAVING Height 167.6 cm (5' 6) 09/17/2014 8:41 AM INSTRUCTOR WEAVING Body Mass Index 28.25 09/17/2014 8:41 AM INSTRUCTOR WEAVING Plan of Treatment Health Maintenance Due Date [...] VACCINE (1 of 2) 2002 COVID-19 VACCINE (1 - 2023-2 5 season) 2024 DEPRESSION SCREENING 11/13/2024 INFLUENZA VACCINE (#1) 2025 Respiratory Syncytial Virus (RSV) Vaccine Pt: or [...] to complete this topic MENINGOCOCCAL (Group B) VACC INE SHARED DECISION-MAKING Aged Out No longer eligibl e based on patient's age to complete this topic MENINGOCOCCAL GROUPS A/C/Y/W VACCINE Aged Out No longer eligible b ased on patient's age to complete this topic
--- OUTSIDE RECORDS SUMMARY | 2025-05-26 02:02 | XMS_ITS | Clinical Summary ---
Author Organization [facility] Address [address] [place] [address] Care Team Providers Care Rough Rice Tender Name Role Phone Allen Woodson MD Primary Care Provider [phone] Allergies Active Allergy Reactions Criticality Noted Date [...] Active Active Problems No known active problems Encounters Date Type Department Care Team Description 03/25/2025 1:50 PM CDT - 03/25/2025 11:59 PM CDT Hospital Encounter [facility] - Imaging [address] [place] [address] Other specified joint disorders, left knee; Presence of left artificial knee joint Discharge Disposition: Discharge to home or self care from Last 3 Months Surgical History Surgery Date Site/Laterality Comments ROTATOR [...] 07/22/2021 10:12 AM CDT Plan of Treatment Health Maintenance Due Date Last Done Comments Colon Cancer Screening-Colonoscopy 1952 Depression Screening 1952 Fall Risk Assessment 1950 Hepatitis C Screening 1952 Prostate Cancer Screening-PSA 1952 Hepatitis B Screening 1970 Pneumococcal vaccine 65+ (1 of 1 - PCV) 2002 Zoster Vaccine (2 of 3) 11/01/2015 09/06/2015 Abdominal Aortic Aneurysm (AAA) Screen 2017 Well Visit 65+ 2017 Covid-19 Vaccine (3 - season) 07/14/202412/2020, 12/19/2020 Influenza Vaccine (Season Ended) 2025 08/20/20 18 DTaP/Tdap/Td Vaccine (2 - Td or Tdap) 01/28/2030 Procedures Procedure Name Priority Date/Time Associated Diagnosis [...] R esult from Last 3 Months Insurance [facility] MEDICARE ADVANTAGE [facility] Address: [address] [address] [facility] Address: [address] [address] MEDICARE ADVANTAGE [facility] Address: [address] [address] Care Teams Rough Rice Tender Relationship Specialty Start Date End Date Allen Woodson MD [address] [place] [address] [address] ARAUJO [address] [place] [address], [place] [address] PCP - General Family Medicine 03/19/25
--- OUTSIDE RECORDS SUMMARY | 2025-05-26 02:02 | XMS_ITS | Continuity of Care Document ---
Author Organization [facility] Address [address] [place] [address] [address] [place] [address] Phone Care Team Providers Care Service Car Operator Name Role Phone Parr OD, Cresencio Unavailable Unavailable Procedures Procedure Date Revise Eyelashes Advance Directives Directive Yes / No Effective Date File Name No Information Encounters Encounter Description Practice Location Reason(s) For Visit Diagnoses Date Provider Providers Copied on Encounter [facility], [address], [place], [place], [id number], [place] tel:[phone] [facility] No Information 3-200 9 Parr OD Cresencio. [address], [place], [address], [place]. tel:[phone] Family History Family Member Type Diagnosis Age At Onset No Information Payers Payer name Insurance type Covered libertarian ID Authoriza sharanraven(s) [employer] [id number] Social History Type Description Quantity Date Captured [...]
--- OUTSIDE RECORDS SUMMARY | 2025-05-26 02:02 | XMS_ITS | Clinical Summary ---
Author Organization [facility] Address [facility] [place] [address] Care Team Providers Care Kosher Dietary Service Supervisor Name Role Phone Arpan Lazaro MD Primary Care Provider [phone] Allergies Active Allergy Reactions Criticality Noted Date Comments Penicillins Unknown 01/29/2020 Medications amitriptyline 10 MG tablet 12/23/2019 Active atorvastatin 10 MG tablet 01/09/2020 Active finasteride 5 MG tablet 12/23/2019 Active lisinopril-hydroch lorothiazide 10-12.5 MG tablet 12/12/2019 A ctive NIFEdipine XL 30 MG 24 hr tablet 12/23/2019 Act harpreet tamsulosin 0.4 MG Cap 12/26/2019 Active Immunizations Immunization Administration Dates Next Due Tdap (Boostrix) 01/29/2020 [...] 11:18 AM CDT Height 172.7 cm (5' 8) 01/29/2020 11:18 AM CDT Body Mass Index 23.57 01/29/2020 11:18 AM CDT Plan of Treatment Health Maintenance Due Date Last Done Comments Colorectal Cancer Screening Colonoscopy (10 Years) 1952 Hepatitis C 1970 Pneumococcal Vaccine: 50+ Ye ars (1 of 1 - PCV) 2002 Zoster Vaccines (1 of 2) 2002 Annual Medicare Wellness Visit 2017 COVID-19 Vaccine ( - 2023-2 5 season) 2024 RSV Immunization or 60+ Years (1 [...] this topic Insurance [facility] Care Teams Kosher Dietary Service Supervisor Relationship Specialty Start Date End Date Arpan Lazaro MD [address] [place] [address] PCP - General FAMILY PRACTICE 01/29/20
--- OUTSIDE RECORDS SUMMARY | 2025-05-26 02:03 | XMS_ITS | Continuity of Care Document ---
Author Organization [facility] Address [address] [place] [address] Phone Care Team Providers Care Live In Housekeeper Name Role Phone Ashely Angel PTA Unavailable [...] Date Provider Providers Copied on Encounter [facility], [address], [place], [place], [id number], [place] tel:[phone] [facility] No Information Dec-0 4-202 4 Lurtz Ashely. . Referring Provider: Steve Rosario LuisSonal [facility] [address], [place], [address]. tel:[phone] [facility] [address] [place] [address] [address], [place], [place], [id number], tel:[phone] [place] No Information Dec-0 2-202 4 Lurtz Ashely. . Referring Provider: Steve Rosario [address] [place] [address] [address], [place], [address]. tel:[phone] [facility], [address] [place] [address] [address], [place], [place], [id number], [place] tel:[phone] [place] Muscle weakness (generalized)Stiffne ss of left knee, not elsewhere classifiedAftercare following joint replacement surgeryPresence of left artificial knee joint Nov-3 0-202 4 Kadeem Albertyn. . Referring Provider: Steve Rosario LuisSonal [facility] [address], [place], [place], [facility]. tel:[phone] [facility] [address] [place] [address] [address], [place], [place], [id number], [place] tel:[phone] [place] No Information Nov-2 7- 4 Kadeem Albertyn. . Referring Provider: Steve Rosario [address] [place] [address] [address], [place], [place], [facility]. tel:[phone] [facility] [address] [place] [address], [id number], [place] tel:[phone] [place] No Information Nov-2 5- 4 Shelbyrtrodney Ashely. . Referring Provider: Steve Rosario [address] [place] [address] [address], [place], [address]. tel:[phone] [facility] [address] [facility] [address], [place], [place], [id number], [place] tel:[phone] [place] No Information Nov-2 0-202 4 Lurtz Ashely. . Referring Provider: Krishna Sellers [facility] [address], [place], [address]. tel:[phone] [facility], [address], [place], [place], [id number], [place] tel:[phone] [place] No Information Nov-1 8-202 4 Lurtz Ashely. . Referring Provider: Krishna Sellers [facility] [address], [place], [address]. tel:[phone] [facility] [address], [place], [place], [id number], [place] tel:[phone] [place] No Information Nov-1 3-202 4 Kadeem Jeffy. . Referring Provider: Krishna Sellers [facility] [address], [place], [address]. tel:[phone] [facility], [facility] [address], [place], [place], [id number], [place] tel:[phone] [place] No Information Nov-0 7-202 4 Kadeem Jeffy. . Referring Provider: Krishna Sellers [facility] [address], [place], [address]. tel:[phone] [facility] [address], [place], [place], [id number], [place] tel:[phone] [place] No Information Nov-0 6-202 4 Lurtz Ashely. . Referring Provider: Krishna Sellers [place] [address] [address], [place], [address]. tel: [facility], [address], [place], [place], [id number], [place] tel:[phone] [place] No Information Nov-0 4-202 4 Lurtz Ashely. . Referring Provider: Krishna Sellers [facility] [address], [place], [address]. tel:[phone] [facility], [address], [place], [place], [id number], [place] tel:[phone] [place] No Information 4 Kadeem [place] . Referring Provider: Steve Rosario , [address], [place], [address]. tel:[phone] Family History Family Member Type Diagnosis Age At Onset No Information Payers Payer name Insurance type Covered democrat ID Authorjenn eagle(s) AARP Medicare Complete 16 [id number] Social History Type Description Quantity Date Captured [...]
--- NOTE | 2025-05-26 10:40 | WPDANESEPPF ---
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 Patient Data Age: 74 Gender: M Height: 1.73 m Weight: 72.6 kg Allergies Allergy/AdvReac Type Severity Reaction Status Date / Time Iodinated Contrast Media Allergy Severe Vomiting Verified 05/26/25 13:29 Penicillins AdvReac Mild Skin Verified 05/26/25 13:29 Reaction Home Medications ?Medication ?Instructions ?Recorded ?Confirmed ?Type aspirin 81 mg chewable tablet 81 mg PO DAILY 01/06/23 05/26/25 History ascorbic acid (vitamin C) 500 mg 500 mg PO DAILY 07/31/24 05/23/25 History tablet multivitamin 1 tablet PO DAILY 07/31/24 05/26/25 History omega 9-vvl-rpl-fish oil 300 1 cap PO DAILY 07/31/24 05/26/25 History mg-1,000 mg capsule (Fish Oil) lisinopril 10 mg tablet 10 mg PO DAILY #90 tabs 02/04/25 05/26/25 Rx meloxicam 15 mg tablet 15 mg PO DAILY #90 tabs 02/04/25 05/26/25 Rx finasteride 5 mg tablet See Rx Instructions .Route 02/21/25 05/26/25 Rx .COMPLEX #90 tabs nifedipine 30 mg tablet,extended 30 mg PO DAILY #90 tabs 02/21/25 05/26/25 Rx release atorvastatin 10 mg tablet 10 mg PO DAILY #90 tabs 03/04/25 05/26/25 Rx doxycycline monohydrate 100 mg See Rx Instructions .Route 04/01/25 05/26/25 Rx capsule .COMPLEX #90 caps triamcinolone acetonide 0.1 % 1 applic topical QID #80 grams 04/11/25 05/26/25 Rx topical cream amitriptyline 10 mg tablet 10 mg PO QPM 05/15/25 05/23/25 History chlordiazepoxide HCl 5 mg capsule 5 mg PO QPM 05/15/25 05/26/25 History esomeprazole magnesium 20 mg 20 mg PO DAILY 05/15/25 05/26/25 History capsule,delayed release (Nexium) fenofibrate 160 mg tablet 160 mg PO QPM 05/15/25 05/26/25 History gabapentin 300 mg capsule 600 mg (2 x 300 mg) PO BID #120 05/15/25 05/26/25 Rx caps tamsulosin 0.4 mg capsule 0.4 mg PO HS 05/15/25 05/26/25 History oxycodone-acetaminophen 5 mg-325 1 - 2 tablet PO Q4-6H PRN pain 7 05/23/25 05/26/25 Rx mg tablet days #30 tabs Patient hx anesthesia problems: none Family hx anesthesia problems: none Results Review: All pre-operative results and documents have been reviewed as part of the pre-operative evaluation. [facility] Past Medical History Medical History (Updated 05/26/25 @ 10:41 by Willy Izaguirre DO) Chronic, continuous use of opioids History of smoking Prediabetes Elevated PSA Elevated liver enzymes Raynaud's syndrome without gangrene Complete tear of left rotator cuff Cervical radiculopathy Elevated PSA Need for hepatitis C screening test Dyslipidemia (Unknown) Screening for abdominal aortic aneurysm Low vitamin D level Elevated platelet count Elevated liver enzymes Serum calcium elevated Prostatitis Impacted cerumen of right ear Cerumen impaction Actinic keratosis Benign prostatic hyperplasia Constipation Essential (primary) hypertension Migraine NOS/intractable Mixed hyperlipidemia Surgical History Surgical History History of total knee arthroplasty Spinal surgery in prior 3 months History of repair of rotator cuff (~2015) right shoulder History of appendectomy Hx of cholecystectomy Family History Family History Father Family history of genitourinary disease Malignant neoplasm of prostate Mother Diabetes mellitus Sibling Family history of malignant neoplasm Social History Social History Social History: Caffeine-coffee daily Smoking packs per day: 1 Smoking cigarettes per day: 20.0 Years smoked: 30 Smoking pack-years: 30.00 Smoking status: Former smoker Tobacco type: cigarettes Smoking end date: 09/21/98 Additional smoking assessment comments: NO nicotine Alcohol intake: current Drinks per week: 1 Alcohol use details: rarely Substance use: never Substance use type: does not use Do You Feel Safe in your Home?: Yes Lack of Transportation: No Lack of Food: Never True Current Housing: I Have Housing Concerned About Future Housing: No Difficulty Paying Gas/Electric Bills: No Difficulty Paying for Meds: No Currently Unemployed: No Education: High School Diploma/GED Difficulty w/ Childcare or Family Care: No Living arrangements: with family Additional living arrangements comments: Gender identity (if verbalized by the patient): Male Spiritual care concerns: No Anes - Eval Final PreProcedure Day of Procedure 05/26/25 10:40 Patient weight: normal Heart: regular rate and rhythm Lungs: clear to auscultation and normal air movement Airway: Mallampati scale class II Neurological: alert and oriented Last oral intake: >/= 8 hours ASA classification: III Emergent: no Anesthetic plan: proceed Anesthesia type and monitoring: general LMA and standard monitoring Results Review: All pre-operative results and documents have been reviewed as part of the pre-operative evaluation. Informed Consent: The patient's anesthetic plan and its attendant risks and benefits were discussed with the patient/family/POA. Questions were solicited and answers provided to the satisfaction of the patient/family/POA.
[2025-05-26] MEDS: ACETAMINOPHEN 500 MG TABLET 1000 MG PO (13:10)
[2025-05-26] MEDS: LACTATED RINGERS 1,000 ML 30 ML IV CONT (13:15)
[2025-05-26] MEDS: KETOROLAC 15 MG/ML VIAL (*BKC) IV PUSH (13:20)
--- NOTE | 2025-05-26 14:12 | WPDHPUPDATE1 ---
History and Physical Update Update Date/Time: 05/26/25 14:12 History and Physical has been reviewed, including an updated exam of the patient. There are NO changes in the patient's condition. Risks, benefits, and alternatives have been discussed and questions answered. Patient agrees to proceed with procedure.
[2025-05-26] MEDS: ceFAZolin 2 GM in SODIUM CHLORIDE 0.9% IV 50 ML 100 ML IVPB (14:37)
[2025-05-26] MEDS: BUPIVACAINE/EPINEPHRINE 0.5% 50 ML VIAL 20 ML INFILTRATE (14:59)
[2025-05-26] MEDS: TRANEXAMIC ACID 1,000 MG/10 ML AMPUL 1000 MG IV PUSH (15:17)
--- NOTE | 2025-05-26 16:29 | P.OP_ITS ---
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 Post-op Diagnosis Same Procedure Performed Left knee open iliotibial band release and limited synovectomy. Surgeon Steve Rosario MD Anesthesia General Indications Recurrent patella clunk in the knee status post total knee arthroplasty. Clinically the patella appeared to track well however, given the preoperative valgus deformity, tightness of the iliotibial band was felt to be a potential contributing factor to subtle patella maltracking. Findings Moderate hypertrophic tissue just proximal to the anterior flange of the femoral component. This matched the area of palpable clicking preoperatively. This area and tissue were excised with the electrocautery. No other abnormal findings or tracking issues were observed. The proximal ITB band release was performed 2-3 cm proximal to the proximal pole of the patella. Description of Procedure Preoperative antibiotics were given. The leg was prepped and draped in the usual sterile fashion. The limb was exsanguinated the tourniquet inflated to 3 mmHg. Prior incision was opened at the proximal aspect. Sharp dissection was brought down to the previous incision through the medial trivector area. The incision was brought down through the fascia just medial to the distal quadriceps tendon and along the proximal aspect of the patella. The soft tissues were bluntly dissected laterally across the vastus lateralis. The IT band was palpable. It was carefully incised sharply confirming a complete release. Moderately prominent soft tissue ridge at the proximal aspect of the femoral implant was debrided. This area appeared to have become hypertrophic after the previous arthroscopic debridement. No other abnormal tissues are findings were discovered. The patella tracked very well. Wound was closed in layers with interrupted 1. Vicryl suture followed by interrupted 2-0 Vicryl suture running 2-0 Stratafix suture and running 3-0 Stratafix suture. Steri- Strips were placed on the skin with Mepilex dressing. Sterile Breezy bandage and soft wrap were placed. The patient was extubated and brought to recovery room in stable condition. There were no complications. Estimated blood loss 20 mL. 0.5% Marcaine 30 mL was injected into soft tissues prior to closure. Estimated Blood Loss 20 Pathology None sent Complications No immediate complications Condition Stable Disposition PACU [facility] Billing Surgery - Charge Forward: Surgery Billing
[2025-05-26] MEDS: oxyCODONE HCL (*CRX) 5 MG TAB IR PO (16:50)
== END 2025-05-26 17:20 | disposition home or self-care (01) ==
PROVIDERS: PCP Family Medicine; Visit Provider Orthopaedic Surgery
PROC: (CPT 29870; principal; 2025-05-26 15:00)
DX: M25.862 Other specified joint disorders, left knee (principal); M65.862 Other synovitis and tenosynovitis, left lower leg; R73.03 Prediabetes; I73.00 Raynaud's syndrome without gangrene; E78.2 Mixed hyperlipidemia; E55.9 Vitamin D deficiency, unspecified; L57.0 Actinic keratosis; N40.0 Benign prostatic hyperplasia without lower urinary tract symptoms; I10 Essential (primary) hypertension; Z79.82 Long term (current) use of aspirin; Z79.891 Long term (current) use of opiate analgesic; Z79.52 Long term (current) use of systemic steroids; Z98.890 Other specified postprocedural states; Z96.652 Presence of left artificial knee joint; Z90.49 Acquired absence of other specified parts of digestive tract; Z87.891 Personal history of nicotine dependence; Z80.42 Family history of malignant neoplasm of prostate
CPT/HCPCS: 27305; J0690; A9270; J1100; J1885; J2003; J2405; J2704; J3010; J7120

== ENCOUNTER 2025-07-15 11:32 | Outpatient (CLI) | payer MEDICARE, SELFPAY ==
--- NOTE | ~2025-07-15 | XR_ITS ---
EXAM/ PROCEDURE: XR hip LT 2V w AP pelvis - 07/15/2025 12:06 CDT HISTORY: 74 years old Male with Pain in left hip x 3 months COMPARISON: None available TECHNIQUE: Three view(s) FINDINGS/ IMPRESSION: There are no fractures or dislocations.Joint space narrowing, subchondral sclerosis, subchondral cyst formation and osteophyte formation, compatible with mild osteoarthritis. Reviewed, dictated and finalized at location N.
== END 2025-07-15 11:33 | disposition home or self-care (01) ==
LOC: GOSHIMG 11:32
PROVIDERS: PCP Orthopaedic Surgery; Visit Provider Nurse Practitioner Family
DX: M25.552 Pain in left hip (principal)
CPT/HCPCS: 73502

== ENCOUNTER 2025-07-23 10:01 | Outpatient (CLI) | payer MEDICARE, SELFPAY ==
--- NOTE | ~2025-07-23 | MR_ITS ---
EXAMINATION: MR lumbar spine wo con DATE: 07/23/2025 10:29 INDICATION: Radiculopathy, lumbar region. TECHNIQUE: Magnetic resonance imaging (MRI) of the lumbar spine was performed without intravenous contrast. Sequences included sagittal T2-weighted FSE, sagittal T2-weighted FS FSE, sagittal T1-weighted FSE, and axial T2-weighted FSE. COMPARISON: Lumbar spine MRI 01/29/2024 FINDINGS: There is 17 degrees dextroscoliosis of lumbar spine. Vertebral body heights are normal. There is severely decreased disc height from L1-L2 through L5-S1. The distal spinal cord signal intensity is normal. The conus medullaris is at L1. The following disc levels are specifically discussed: L1-L2: The disc is bulging and has an annular fissure. There is severe bilateral facet joint osteoarthritis. There is mild right and moderate left neural foraminal stenosis. There is mild central canal stenosis. There is posterior decompression. L2-L3: The disc is bulging and has an annular fissure. There is severe bilateral facet joint osteoarthritis. There is mild right and moderate left neural foraminal stenosis. There is mild central canal stenosis. There is posterior decompression. L3-L4: The disc is bulging and has an annular fissure. There is severe bilateral facet joint osteoarthritis. There is moderate bilateral neural foraminal stenosis. There is mild central canal stenosis. There is posterior decompression. L4-L5: The disc is bulging. There is severe bilateral facet joint osteoarthritis. There is a 9 mm synovial cyst of left facet joint in left lateral recess. There is moderate bilateral neural foraminal stenosis. There is mild central canal stenosis at the midline. There is severe stenosis of left lateral recess. L5-S1: The disc is bulging and has an annular fissure. There is severe bilateral facet joint osteoarthritis. There is moderate bilateral neural foraminal stenosis. There is mild central canal stenosis. IMPRESSION: 1. Severe lumbar spondylosis with new synovial cyst on the left at L4-L5. 2. Lumbar dextroscoliosis. Reviewed, dictated and finalized at location E.
== END 2025-07-23 10:02 | disposition home or self-care (01) ==
LOC: MICIMG 10:03
PROVIDERS: PCP Orthopaedic Surgery; Visit Provider Nurse Practitioner Family
DX: M48.062 Spinal stenosis, lumbar region with neurogenic claudication (principal); M47.26 Other spondylosis with radiculopathy, lumbar region
CPT/HCPCS: 72148

== ENCOUNTER 2025-10-24 12:31 | Outpatient (CLI) | payer MEDICARE, SELFPAY ==
--- NOTE | 2025-10-24 13:30 | ECG_ITS ---
Test Date: 2025-10-24 13:46:36 Measurements Intervals [place] Rate: 71 P: -2 RI: 151 QRS: -17 QRSD: 101 T: 31 QT: 353 QTc: 384 Interpretive Statements SINUS RHYTHM DELAYED PRECORDIAL R/S TRANSITION BASELINE ARTIFACT- I, III, AVR, AVL, AVF BORDERLINE ECG Compared to ECG 06/13/2024 08:46:16 No significant changes Electronically Signed On 10-24-2025 13:51:08 [employer] TRUCK DRIVER by Duong Palmer D.O.
[2025-10-24 13:56] LABS: Add Urine Microscopic? NO; Appearance Urine Clear (Clear); Glucose Urine UA Negative (Negative); Hematocrit 40.7 % (42.0-52.0); Hemoglobin 14.0 g/dL (14.0-18.0); Leukocyte Esterase Ur Negative LEU/UL (Negative); Mean Corpuscular HGB Conc 34.4 g/dl (32-36); Mean Corpuscular Hemoglobin 32.7 pg (26-34); Mean Corpuscular Volume 95.1 fl (80-100); Nitrate Urine Negative (Negative); Platelet Count Result 359 k/mm3 (150-375); Red Blood Count 4.28 M/mm3 (4.6-6.20); Specific Grav Ur 1.003 (1.001-1.035); White Blood Count 9.3 K/mm3 (4.5-10.0)
[2025-10-24 14:10] LABS: INR 1.1; Prothrombin Time 13.7 Seconds (11.1-14.7)
[2025-10-24 14:11] LABS: Partial Thromboplastin Time 25.8 Seconds (22.3-36.8)
[2025-10-24 14:17] LABS: Anion Gap 5 mmol/L (4-12); Blood Urea Nitrogen 21 mg/dL (9-20); Calcium 11.1 mg/dL (8.4-10.2); Carbon Dioxide 27 mmol/L (22-30); Chloride 107 mmol/L (98-107); Estimated Glomerular Filt Rate > 60; Glucose 98 mg/dL (65-110); Potassium 4.1 mmol/L (3.4-5.0); Sodium 139 mmol/L (137-145)
== END 2025-10-24 12:32 | disposition home or self-care (01) ==
LOC: ANHSURGERY 12:35
PROVIDERS: PCP Family Medicine; Visit Provider Neurological Surgery
DX: M48.061 Spinal stenosis, lumbar region without neurogenic claudication (principal); Z01.818 Encounter for other preprocedural examination; R94.31 Abnormal electrocardiogram [ECG] [EKG]
CPT/HCPCS: 36415; 80048; 81003; 85027; 85610; 85730; 93005

== ENCOUNTER 2025-11-04 03:36 | Day surgery (SDC) | payer MEDICARE, SELFPAY ==
--- NOTE | 2025-10-24 12:39 | PC.NURSE ---
[facility] has started construction of its new state of the art ER which will open Spring 2026. With this, we anticipate parking may be a challenge for some our surgical patients and families. Parking spaces are limited but are available for all Surgical, obstetrics, and ER patients sharing this lot. If you arrive and find you are having a hard time finding a parking space, please note that we understand the challenges, please drive around the hospital and park near Hospital Entrance 1. When you enter this entrance, you can ask a volunteer to direct or take you back to the surgical waiting area to check in. We appreciate everyone?s understanding of these expected challenges while we build for your future. Report to the Outpatient Waiting Room, entrance under the green pavilion located off [address], at time __9 AM on date _11/04/25 . Planned Procedure Time: __11 AM .? Time changes happen often and if your time is changed the preop area will call you the afternoon before. - You and your visitor will be asked to self-screen and do not enter if you have any COVID symptoms. Please call surgeon if you need to reschedule. - A mask is optional within the hospital at this time. Patients may have clear liquids (water, carbonated beverages, clear teas, apple juice) until 3 hours prior to surgery( 8AM) with a maximum of 20 ounces. - No food from midnight until time of surgery and no smoking, or chewing tobacco (or any form of nicotine). No chewing gum, candy or mints. Take only the following medications with a SIP of water on the morning of surgery: ___GABAPENTIN,NIFEDIPINE,HYDROCODONE IF NEEDED DO NOT STOP ANY OF YOUR OTHER PRESCRIPTION MEDICATIONS PRIOR TO SURGERY EXCEPT THE FOLLOWING Hold all vitamins and supplements for 3 days per anesthesiologist.LAST DOSE 10/31/25 Medications to discontinue per physician ____ASPIRIN PER DR HOBSON/ HOLD MELOXICAM 7 DAYS PRE OP PER DR HOBSON LAST DOSE 10/27/25 Please no make-up, nail greenlandic, hairspray, perfume, deodorant, or body powder the day of surgery.? No jewelry (including any body piercings) or valuables the day of surgery, leave them at home.? Please take a shower or bath the night before, or the morning of, surgery with an antibacterial soap.? Wear comfortable, loose fitting clothing.? Children are encouraged to wear pajamas. - Jewelry must be removed prior to entering the operating room.? Rings and piercings that are not removed may be cut off. - The hospital will not accept responsibility for valuables.? - Please leave all valuables, including medications, at home the day of surgery. If you are going home after surgery, a licensed pick up truck driver must drive you home.? - NO public transportation without another adult if you receive anesthesia. - We recommend that an adult stay with you for 24 hours following discharge. - We also recommend that you do not drive, make important decision, drink alcoholic beverages, or take any drugs that were not prescribed by your health care provider for at least 24 hours after your discharge time. For Pediatric surgeries, we recommend two adults accompany the child home. Follow any additional instructions given to you from your surgeon. VERBAL AND WRITTEN instructions given to ___PATIENT and asked if any additional questions and then verbalized understanding. Patient advised to call surgeon office or pre surgery nurse liaison [phone] if any additional questions.
[2025-10-24 12:47] VITALS: BMI 25.1
[2025-10-24 13:30] VITALS: BP 165/95; PULSE 90; RESP 18; TEMP 36.7; O2SAT 97
[2025-11-04] VITALS (10 sets, daily range): BP systolic 108–162; BP diastolic 64–96; PULSE 62–77; RESP 14–20; TEMP 36.3; O2SAT 93–100
--- NOTE | ~2025-11-04 | XR_ITS ---
XR fluoroscopy no charge Indication: Lumbar laminectomy at L4-5. TECHNIQUE: Fluoroscopy used during Lumbar laminectomy at L4-5. performed by [Nasir Richardson MD] on 11/04/2025. 1 second of fluoroscopy time with one fluoroscopic images captured. FINDINGS: Correlate with procedure note. IMPRESSION: Fluoroscopy used during Lumbar laminectomy at L4-5.. Reviewed, dictated and finalized at location O. [employer]
--- OUTSIDE RECORDS SUMMARY | 2025-11-04 03:38 | XMS_ITS | Clinical Summary ---
Author Organization [facility] Address [place] [address] Care Team Providers Care Music Adapter Name Role Phone Arpan Lazaro MD Primary Care Provider [phone] Allergies Active Allergy Reactions Criticality Noted Date [...] Annual Medicare Wellness Visit 2017 COVID-19 Vaccine (1 - 2024-2 6 season) 2025 Influenza Adult (#1) 2025 RSV Immunization or 60+ Years (1 - 1-dose 75+ series) 2027 DTaP, Tdap and Td Vaccines ( 2 - Td or Tdap) 01/28/2030 01/29/2020 Hepatitis A Vaccines Aged Out No long er eligible based on patient's age to complete this topic Meningococcal B Vaccine Aged Out No l onger eligible based on patient's age to complete this topic Meningococcal Vaccine Aged Out No simone meryl eligible based on patient's age to complete this topic RSV Immunizations Under 20 Months Aged Out No longer eligible based on patient's age to complete this topic Insurance [employer] OF [employer] UHC MEDICARE Care Teams Music Adapter Relationship Specialty Start Date End Date Arpan Lazaro MD [address] [place] [address] PCP - General FAMILY PRACTICE 01/29/20
--- OUTSIDE RECORDS SUMMARY | 2025-11-04 03:38 | XMS_ITS | Clinical Summary ---
Author Organization [facility] Address [address] [place] [address] Care Team Providers Care Lottery Sales Clerk Name Role Phone Unavailable Primary Care Provider Unavailabl e Source Comments [facility],non-owned Affiliates and Associated Physician Practices is amultiple site organization consisting of ambulatory clinics and hospital sitesin [place], [place], [place] and [place]. This disclosure is being madepursuant to the Care Everywhere program and may not contain all information available regarding this patient. Last updated 18.[facility] [employer] Social History Tobacco Use Types Packs/Day Years Used Date Smoking Tobacco: Never Assessed Sex and Gender Information Value Date Recorded Sex Assigned at Not on file Legal Sex Male 5:24 AM HISTORICAL INTERPRETER Gender Identity Not on file Sexual Orientation [...] 79.4 kg (175 lb) 09/17/2014 8:41 AM HISTORICAL INTERPRETER Height 167.6 cm (5' 6) 09/17/2014 8:41 AM HISTORICAL INTERPRETER Body Mass Index 28.25 09/17/2014 8:41 AM HISTORICAL INTERPRETER Plan of Treatment Health Maintenance Due Date [...] 2002 ZOSTER VACCINE (1 of 2) 2002 DEPRESSION SCREENING 11/13/2024 COVID-19 VACCINE (1 - 2024-2 6 season) 2025 INFLUENZA VACCINE (#1) 2025 Respiratory Syncytial Virus [...]
--- OUTSIDE RECORDS SUMMARY | 2025-11-04 03:38 | XMS_ITS | Clinical Summary ---
Author Organization [facility] Address [address] [place] [id number] Care Team Providers Care Medical Equipment Repairer Name Role Phone Allen Woodson MD Primary Care Provider [phone] Allergies Active Allergy Reactions Criticality Noted Date [...] 65+ 2017 Covid-19 Vaccine (3 - season) 07/14/202512/2020, 12/19/2020 Influenza Vaccine (#1) 2025 08/20/2018 DTaP/Tdap/Td Vaccine (2 - Td or Tdap) 01/28/2030 Insurance UHC MEDICARE ADVANTAGE [facility] Address: [place] [id number] [place] [id number] [facility] Address: [place] [id number] UHC MEDICARE ADVANTAGE Care Teams Medical Equipment Repairer Relationship Specialty Start Date End Date Allen Woodson MD [address] [place] [address] [address] ARAUJO [address] [place] [id number] PCP - General Family Medicine 03/19/25
--- NOTE | 2025-11-04 08:52 | WPDANESEPPF ---
Anes - Initial Pre Proc Eval Procedure: Operation Date: 11/04/25 12:00 Proposed Procedures p L4-5 Lumbar Laminectomy - Nasir Richardson MD Date/Time: 11/04/25 08:52 Surgeon: Nasir Richardson MD Pre Op Diagnosis: L4-5 stenosis Patient Data Age: 75 Gender: M Height: 1.73 m Weight: 74.9 kg Last Vital Signs Temp 36.7 C 10/24/25 13:30 Pulse 90 10/24/25 13:30 Resp 18 10/24/25 13:30 BP 165/95 H 10/24/25 13:30 Pulse Ox 97 10/24/25 13:30 O2 Del Method Room Air 10/24/25 13:30 Allergies Allergy/AdvReac Type Severity Reaction Status Date / Time Iodinated Contrast Media Allergy Severe Vomiting Verified 10/24/25 12:48 Penicillins AdvReac Mild Skin Verified 10/24/25 12:48 Reaction Home Medications ?Medication ?Instructions ?Recorded ?Confirmed ?Type aspirin 81 mg chewable tablet 81 mg PO DAILY 01/06/23 10/24/25 History ascorbic acid (vitamin C) 500 mg 500 mg PO DAILY 07/31/24 10/24/25 History tablet multivitamin 1 tablet PO DAILY 07/31/24 10/24/25 History omega 3-mtn-fms-fish oil 300 1 cap PO DAILY 07/31/24 10/24/25 History mg-1,000 mg capsule (Fish Oil) chlordiazepoxide HCl 5 mg capsule 5 mg PO QPM 05/15/25 10/24/25 History esomeprazole magnesium 20 mg 20 mg PO PRN 05/15/25 10/24/25 History capsule,delayed release (Nexium) atorvastatin 10 mg tablet 10 mg PO DAILY #90 tabs 06/04/25 10/24/25 Rx lisinopril 10 mg tablet 10 mg PO DAILY #90 tabs 07/29/25 10/24/25 Rx meloxicam 15 mg tablet 15 mg PO DAILY #90 tabs 07/29/25 10/24/25 Rx amitriptyline 10 mg tablet 10 mg PO QPM #90 tabs 08/01/25 10/24/25 Rx nifedipine 30 mg tablet,extended 30 mg PO DAILY #90 tabs 08/12/25 10/24/25 Rx release gabapentin 300 mg capsule 600 mg (2 x 300 mg) PO BID #120 08/13/25 10/24/25 Rx caps tamsulosin 0.4 mg capsule 0.4 mg PO DAILY #90 caps 08/14/25 10/24/25 Rx finasteride 5 mg tablet See Rx Instructions .Route 08/19/25 10/24/25 Rx .COMPLEX #90 tabs doxycycline monohydrate 100 mg 100 mg PO DAILY #90 caps 10/13/25 10/24/25 Rx capsule fenofibrate 160 mg tablet 160 mg PO DAILY #90 tabs 10/15/25 10/24/25 Rx hydrocodone 5 mg-acetaminophen 325 1 - 2 tablet PO Q4H PRN pain #60 10/28/25 Rx mg tablet tabs Patient hx anesthesia problems: none Family hx anesthesia problems: none Results Review: All pre-operative results and documents have been reviewed as part of the pre-operative evaluation. [facility] Past Medical History Medical History Chronic, continuous use of opioids History of smoking Prediabetes Elevated PSA Elevated liver enzymes Raynaud's syndrome without gangrene Complete tear of left rotator cuff Cervical radiculopathy Elevated PSA Need for hepatitis C screening test Dyslipidemia (Unknown) Screening for abdominal aortic aneurysm Low vitamin D level Elevated platelet count Elevated liver enzymes Serum calcium elevated Prostatitis Impacted cerumen of right ear Cerumen impaction Actinic keratosis Benign prostatic hyperplasia Constipation Essential (primary) hypertension Migraine NOS/intractable Mixed hyperlipidemia Surgical History Surgical History Status post left knee surgery (~05/26/25) Left knee Open IT band release with limited Synovectomy Status post arthroscopy of left knee (~01/20/25) Left knee arthroscopic synovectomy of TKA Status post total left knee replacement (~08/29/24) Medacta Spinal surgery in prior 3 months History of repair of rotator cuff (~2015) right shoulder History of appendectomy Hx of cholecystectomy Family History Family History Father Family history of genitourinary disease Malignant neoplasm of prostate Mother Diabetes mellitus Sibling Family history of malignant neoplasm Social History Social History Social History: Caffeine-coffee daily Smoking packs per day: 1 Smoking cigarettes per day: 20.0 Years smoked: 30 Smoking pack-years: 30.00 Smoking status: Former smoker Tobacco type: cigarettes Smoking end date: 09/21/98 Additional smoking assessment comments: NO nicotine Alcohol intake: current Drinks per week: 1 Alcohol use details: rarely Substance use: never Substance use type: does not use Lack of Transportation: No Lack of Food: Never True Current Housing: I Have Housing Concerned About Future Housing: No Difficulty Paying Gas/Electric Bills: No Difficulty Paying for Meds: No Currently Unemployed: No Education: High School Diploma/GED Difficulty w/ Childcare or Family Care: No Living arrangements: with family Additional living arrangements comments: Gender identity (if verbalized by the patient): Male Spiritual care concerns: No Anes - Eval Final PreProcedure Day of Procedure 11/04/25 08:52 Patient weight: normal Heart: regular rate and rhythm Lungs: decreased breath sounds Airway: Mallampati scale class II Neurological: alert and oriented Last oral intake: >/= 8 hours ASA classification: III Emergent: no Anesthetic plan: proceed Anesthesia type and monitoring: general ETT and standard monitoring Results Review: All pre-operative results and documents have been reviewed as part of the pre-operative evaluation. Informed Consent: The patient's anesthetic plan and its attendant risks and benefits were discussed with the patient/family/POA. Questions were solicited and answers provided to the satisfaction of the patient/family/POA.
[2025-11-04] MEDS: LACTATED RINGERS 1,000 ML 30 ML IV CONT ×2 (10:30→14:25)
--- NOTE | 2025-11-04 12:22 | SUR.PREOP ---
PT AND SPOUSE MADE AWARE OF ~1HR DELAY R/T PREV CASE TIME DELAY. BOTH VOICE UNDERSTANDING AND DENY NEEDS AT THIS TIME.
--- NOTE | 2025-11-04 13:01 | PM.IMHP2 ---
H&P: HPI History of Present Illness Date/Time: 11/04/25 13:01 Chief Complaint: Back and leg pain Narrative: Priyank is here today for L4-5 laminectomy. He is a 75-year-old male With continued pain in his back radiating down his left lower extremity and into the left hip area. His hip has been radiographically and clinically evaluated by Dr. Pang Son. He does not believe there is any significant problem with this hip currently. Pain is worse when he walks and better if he rests but can be present in any position or with any sustained posture activity. He does not report specific muscle group weakness or dermatomal numbness. Review of Systems Review of Systems: Patient denies shortness of breath, cough, fever, chills, nausea, vomiting, weight loss, weight gain, chest pain, dysuria. He has back and leg pain as above. His review of systems is otherwise negative on 12 systems except as noted elsewhere. [facility] Past Medical History Medical History Chronic, continuous use of opioids History of smoking Prediabetes Elevated PSA Elevated liver enzymes Raynaud's syndrome without gangrene Complete tear of left rotator cuff Cervical radiculopathy Elevated PSA Need for hepatitis C screening test Dyslipidemia (Unknown) Screening for abdominal aortic aneurysm Low vitamin D level Elevated platelet count Elevated liver enzymes Serum calcium elevated Prostatitis Impacted cerumen of right ear Cerumen impaction Actinic keratosis Benign prostatic hyperplasia Constipation Essential (primary) hypertension Migraine NOS/intractable Mixed hyperlipidemia Surgical History Surgical History Status post left knee surgery (~05/26/25) Left knee Open IT band release with limited Synovectomy Status post arthroscopy of left knee (~01/20/25) Left knee arthroscopic synovectomy of TKA Status post total left knee replacement (~08/29/24) Medacta Spinal surgery in prior 3 months History of repair of rotator cuff (~2015) right shoulder History of appendectomy Hx of cholecystectomy Family History Family History Father Family history of genitourinary disease Malignant neoplasm of prostate Mother Diabetes mellitus Sibling Family history of malignant neoplasm Social History Social History Social History: Caffeine-coffee daily Smoking packs per day: 1 Smoking cigarettes per day: 20.0 Years smoked: 30 Smoking pack-years: 30.00 Smoking status: Former smoker Tobacco type: cigarettes Smoking end date: 09/21/98 Additional smoking assessment comments: NO nicotine Alcohol intake: current Drinks per week: 1 Alcohol use details: rarely Substance use: never Substance use type: does not use Lack of Transportation: No Lack of Food: Never True Current Housing: I Have Housing Concerned About Future Housing: No Difficulty Paying Gas/Electric Bills: No Difficulty Paying for Meds: No Currently Unemployed: No Education: High School Diploma/GED Difficulty w/ Childcare or Family Care: No Living arrangements: with family Additional living arrangements comments: Gender identity (if verbalized by the patient): Male Spiritual care concerns: No Meds Home Medications and Allergies Home Medications ?Medication ?Instructions ?Recorded ?Confirmed ?Type aspirin 81 mg chewable tablet 81 mg PO DAILY 01/06/23 10/24/25 History ascorbic acid (vitamin C) 500 mg 500 mg PO DAILY 07/31/24 10/24/25 History tablet multivitamin 1 tablet PO DAILY 07/31/24 10/24/25 History omega 0-ibz-urk-fish oil 300 1 cap PO DAILY 07/31/24 10/24/25 History mg-1,000 mg capsule (Fish Oil) chlordiazepoxide HCl 5 mg capsule 5 mg PO QPM 05/15/25 10/24/25 History esomeprazole magnesium 20 mg 20 mg PO PRN 05/15/25 10/24/25 History capsule,delayed release (Nexium) atorvastatin 10 mg tablet 10 mg PO DAILY #90 tabs 06/04/25 10/24/25 Rx lisinopril 10 mg tablet 10 mg PO DAILY #90 tabs 07/29/25 10/24/25 Rx meloxicam 15 mg tablet 15 mg PO DAILY #90 tabs 07/29/25 10/24/25 Rx amitriptyline 10 mg tablet 10 mg PO QPM #90 tabs 08/01/25 10/24/25 Rx nifedipine 30 mg tablet,extended 30 mg PO DAILY #90 tabs 08/12/25 10/24/25 Rx release gabapentin 300 mg capsule 600 mg (2 x 300 mg) PO BID #120 08/13/25 10/24/25 Rx caps tamsulosin 0.4 mg capsule 0.4 mg PO DAILY #90 caps 08/14/25 10/24/25 Rx finasteride 5 mg tablet See Rx Instructions .Route 08/19/25 10/24/25 Rx .COMPLEX #90 tabs doxycycline monohydrate 100 mg 100 mg PO DAILY #90 caps 10/13/25 10/24/25 Rx capsule fenofibrate 160 mg tablet 160 mg PO DAILY #90 tabs 10/15/25 10/24/25 Rx hydrocodone 5 mg-acetaminophen 325 1 - 2 tablet PO Q4H PRN pain #60 10/28/25 Rx mg tablet tabs Allergies Allergy/AdvReac Type Severity Reaction Status Date / Time Iodinated Contrast Media Allergy Severe Vomiting Verified 11/04/25 10:05 Penicillins AdvReac Mild Skin Verified 11/04/25 10:05 Reaction Vital Signs Vital Signs - 24 hr 11/04/25 10:00 Temperature 97.4 F L Pulse Rate 77 Respiratory Rate 18 Blood Pressure 137/76 Pulse Oximetry 97 Oxygen Delivery Room Air Exam Narrative: Strength is normal the bilateral lower extremities. Sensation is intact to light touch in lower extremities Yogi's test is mildly positive on the left, negative on the right. Gait, Station and transfers were independent steady. Assessment and Plan Assessment and plan (1) Lumbar stenosis with neurogenic claudication: Code(s): M48.062 - Spinal stenosis, lumbar region with neurogenic claudication Status: Acute Plan Priyank is a 74-year-old gentleman with back and leg pain that is multifactorial. His knee still does bother him significantly Um but his hip has been ruled out as a pain generator. I have therefore recommended him decompression at L4-[address] laminectomy or hemilaminectomy and described to him that operation, its risks, potential benefits, the operative and postoperative course in detail and answered all his questions personally. We discussed risks including but not limited to permanent neurologic deficit secondary to nerve root injury, need for reoperation secondary to infection, bleeding, CSF leak, adjacent level disease, recurrent residual pathology or instability, failure of the procedure to relieve his pain or symptoms, persistent pain, medical complications related anesthesia or surgery, etc.. He indicates understanding and elects to proceed with that operation.
--- NOTE | 2025-11-04 13:05 | WPDHPUPDATE1 ---
History and Physical Update Update Date/Time: 11/04/25 13:05 History and Physical has been reviewed, including an updated exam of the patient. There are NO changes in the patient's condition. Risks, benefits, and alternatives have been discussed and questions answered. Patient agrees to proceed with procedure.
[2025-11-04] MEDS: ceFAZolin 2 GM in SODIUM CHLORIDE 0.9% IV 50 ML 100 ML IVPB (13:13)
[2025-11-04] MEDS: LIDO 1%/EPINEPHRINE 1:100,000 20 ML VIAL 8 ML INFILTRATE (13:48)
[2025-11-04] MEDS: fentaNYL CITRATE INJ (*CRX) 100 MCG/2 ML VIAL 25 MCG IV PUSH ×2 (15:02→15:19)
--- NOTE | 2025-11-04 22:56 | W.PM.PROC2 ---
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 He was then turned into the prone position on a Connor frame. The operation his back was examined, marked for incision, prepped and draped in routine sterile fashion. Incision was marked over the L4 and L5 spinous processes in the midline. This area was injected with 0.5% lidocaine with 1 200,000 epinephrine. Intravenous antibiotics given prior to incision. Incision was made with a 10 blade scalpel down to the lumbodorsal fascia. A subperiosteal dissection of the muscle soft tissue away from the spinous process and lamina at L5 was performed with a subperiosteal elevator and Bovie cautery. A verifying x-rays obtained to verify level of operation. A Midas Ventura drill was used to perform a hemilaminectomy at L5. Under microscopy the yellow ligament was lifted and removed piecemeal using Kerrison punches. Dissection was carried superiorly into a previous laminectomy defect. In the lateral mass a Midas drill was used to perform a medial facetectomy and Kerrison punches were used to remove additional bone and ligament in the lateral recess until it was decompressed ipsilaterally. Contralateral decompression was then performed by undercutting the lamina and facet with the Midas Ventura drill. A curved curette was used to define a plane with the dura. Kerrison punches were used to remove overgrown bone and ligament in the lateral recess. This was done until a dental instrument could be placed bilaterally into the lateral recess and into the foramen to confirm lack of compression. The wound was then copiously irrigated with bacitracin irrigation all bleeding stopped with bipolar and Bovie cautery and Gelfoam thrombin powder. The wound was then closed in layered fashion with 2-0 Vicryl interrupted sutures in the lumbodorsal fascia and Alvino's layer. 3-0 Vicryl buried interrupted sutures were placed in the dermis and the skin was closed with a running 4-0 Monocryl subcuticular stitch and dressed with Dermabond. The patient was allowed to wake up in the operating room and was taken to the recovery room in stable condition. There were no immediate complications of this operation. All counts were reported correct at the end of case. Blood loss was 25 cc. The patient was neurologically at his baseline postoperatively. CPT codes: 85355, 69067, 30458 Estimated Blood Loss 25 Complications None Condition Stable Disposition PACU [facility] Billing Surgery - Charge Forward: Surgery Billing
== END 2025-11-04 16:22 | disposition home or self-care (01) ==
PROVIDERS: PCP Family Medicine; Visit Provider Neurological Surgery
PROC: (CPT 63005; principal; 2025-11-04 12:00)
DX: M48.062 Spinal stenosis, lumbar region with neurogenic claudication (principal); Z87.891 Personal history of nicotine dependence
CPT/HCPCS: 63047; 99199; J0690; J0330; J1100; J1938; J2003; J2004; J2405; J2704; J3010; J7120